=== PATIENT | male | born 1970 | race Caucasian/White ===

== ENCOUNTER 2022-12-01 19:48 | Emergency (ER) | payer OTHER, SELFPAY ==
[2022-12-01 20:13] VITALS: BP 107/66; PULSE 75; RESP 16; TEMP 36.8; O2SAT 98; BMI 30.4
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
[2022-12-01] MEDS: Acetaminophen 325 MG TABLET 975 MG PO (20:41)
[2022-12-01] MEDS: Cyclobenzaprine HCl 10 MG TABLET PO (20:41)
--- NOTE | 2022-12-01 20:42 | PC.NURSE ---
pt medicated per MAR
== END 2022-12-01 20:56 | disposition home or self-care (01) ==
PROVIDERS: Emergency Provider Emergency Medicine
DX: Z04.1 Encounter for examination and observation following transport accident (principal); M79.18 Myalgia, other site
CPT/HCPCS: 99283

== ENCOUNTER 2023-06-07 04:53 | Emergency (ER) | payer OTHER, SELFPAY ==
[2023-06-07 05:19] VITALS: BP 117/73; PULSE 67; RESP 16; TEMP 36.1; O2SAT 96; BMI 28.0
[2023-06-07 06:03] VITALS: BP 123/80; PULSE 69; RESP 15; TEMP 36.8; O2SAT 97
--- OUTSIDE RECORDS SUMMARY | 2023-06-07 06:08 | XMS_ITS | Continuity of Care Document ---
Author Name Unknown Organization [facility] Address Unknown Care Team Providers Care Brusher Warp Name Role Phone Cinthia Reynolds Primary Care Physician Encounter [facility] [place] Date(s): 03/23/21 - 06/03/21 [facility] Attending Physician: Cinthia Reynolds Admitting Physician: Cinthia Reynolds Allergies, Adverse Reactions, Alerts Substance Reaction Severity Status NKA Active Immunizations Given and Recorded Vaccine Date Status Refusal Reason SARS-CoV-2 (COVID-19) Ad26 vaccine 11/11/20 Record ed pneumococcal 23-valent vaccine 04/28/20 Given influenza virus vaccine, inactivated 04/28/20 Give n influenza virus vaccine, inactivated 04/29/19 Cody rded Tetanus-Diphth Toxoids, Adult (oldterm) 1 12/02/11 Given 1Admin Note: vis given 05/03/08 Medications Flovent HFA 110 mcg/inh inhalation aerosol = 220 mcg, Inhalation, 2 times a day, for asthma control rinse mouth and throat after use label in uruguayan, # 1 each, 11 Refills, Maintenance, 03/23/21 15:47:00 EDT, [facility], 170, cm, 03/23/21 15:16:00 EDT, Height, 82.72, kg,... Start Date: 03/23/21 Status: Ordered Mobic 15 mg oral tablet 1 tablet = 15 mg, By Mouth, Daily, FOR LEFT ARM PAIN LABEL IN BULGARIAN, # 30 tablet, 0 Refills, Maintenance, 03/23/21 15:53:00 EDT, Tablet, [facility], Partial fill upon patient request if the prescription is for a schedule II opio... Start Date: 03/23/21 Status: Ordered ProAir HFA 90 mcg/inh inhalation aerosol with adapter 2, puffs, Inhalation, Every 4 hours, PRN, # 8.5 Gm, Refills 11, Tot. Refills 11, Maintenance, 03/23/21 15:47:00 EDT, Aerosol, Route to Pharmacy Electronically, [id number], [facility], 170, cm, 03/23/21 15:... Start Date: 03/23/21 Status: Ordered Protonix 40 mg oral delayed release tablet 1 tablet = 40 mg, By Mouth, 2 times a day, for stomach pain label in uruguayan, # 30 tablet, 11 Refills, Maintenance, 03/23/21 15:47:00 EDT, EC Tablet, 170, cm, 03/23/21 15:16:00 EDT, Height, 82.72, kg, 07/12/19 16:27:00 EST, Dry Weight Start Date: 03/23/21 Status: Ordered tiZANidine 4 mg oral capsule 1 capsule = 4 mg, By Mouth, 3 times a day, FOR MUSCLE PAIN LEFT ARM LABEL IN BULGARIAN, # 42 capsule,0 Refills, Maintenance, 03/23/21 15:53:00 EDT, Capsule, [facility], Partial fill upon patient request if the prescription is for... Start Date: 03/23/21 Stop Date: 04/06/21 Status: Ordered Problem List Condition Effective Dates Status Health Status Inform ant AR (allergic rhinitis)(Confirmed) Active Asthma(Confirmed) Active Cough(Confirmed) Active Depression(Confirmed) Active GERD (gastroesophageal reflu x disease)(Confirmed) Active Social History Social History Type Response Smoking Status Former smoker, quit more than 30 days ago; Total pack years: 27; Started at age: 20; Stopped at age: 47; entered on: 08/10/18 Sex
--- OUTSIDE RECORDS SUMMARY | 2023-06-07 06:08 | XMS_ITS | Continuity of Care Document ---
Author Name Unknown Organization [facility] Address [address] [place] [id number]- Care Team Providers Care Engagement Director Name Role Phone Passer Cinthia MALIN Primary Care Physician En[place] [facility] [place]CT R [id number] Date(s): 11/13/22 - 12/13/22 [facility] [address] [place] [address]- Attending Physician: Perry Marcum Admitting Physician: AdmtrPerry Referring Physician: Admtr, Ar8 Allergies, Adverse Reactions, Alerts No Known Allergies Immunizations Given and Recorded Vaccine Date Status Refusal Reason influenza virus vaccine, inactivated 03/11/22 Cody rded influenza virus vaccine, inactivated 04/28/20 Give n influenza virus vaccine, inactivated 04/29/19 Cody rded tetanus/diphtheria/pertussis, acel(Tdap) 03/11/22 Recorded SARS-CoV-2 (COVID-19) mRNA BNT-162b2 vac 07/05/21 Recorded SARS-CoV-2 (COVID-19) Ad26 vaccine 11/11/20 Record ed pneumococcal 23-valent vaccine 04/28/20 Given Tetanus-Diphth Toxoids, Adult (oldterm) 1 12/02/11 Given 1Admin Note: vis given 05/03/08 Medications Boostrix (Tdap) intramuscular suspension 0.5 mL, Intramuscular, Once, # 5 mL, 0 Refills, Soft Stop, 03/11/22 14:15:00 EDT, Suspension, [facility]odd[facility][id number], Partial fill upon patient request if the prescription is for a schedule II opioid drug., 0.5 mL Intramuscular Once, 170,... Start Date: 03/11/22 Status: Ordered CeleBREX 200 mg oral capsule 1 capsule = 200 mg, By Mouth, 2 times a day, with food for right knee pain label in malian, # 60 capsule, 2 Refills, Maintenance, 09/19/22 11:26:00 EDT, Capsule, [facility], Partial fill upon patient request if the prescripti... Start Date: 09/19/22 Status: Ordered influenza virus vaccine, inactivated adjuvanted preservative-free quadrivalent intramuscular susp 0.5 mL, Intramuscular, Once, # 0.5 mL, 0 Refills, Soft Stop, 03/11/22 14:15:00 EDT, Suspension, [facility], Partial fill upon patient request if the prescription is for a schedule II opioid drug., 0.5 mL Intramuscular Once, 170... Start Date: 03/11/22 Status: Ordered ProAir HFA 90 mcg/inh inhalation aerosol with adapter 2, puffs, Inhalation, Every 4 hours, PRN, # 8.5 Gm, Refills 11, Tot. Refills 11, Maintenance, 03/11/22 14:14:00 EDT, Aerosol, Route to Pharmacy Electronically, NCPDP_[id number], [facility], 170, cm, 03/11/22 13:52:00 EDT, Height Start Date: 03/11/22 Status: Ordered Shingrix intramuscular injection = 0.5 mL, Intramuscular, Once, repeat dose in 2 to 6 months, # 2 each, 0 Refills, Soft Stop, 09/19/22 11:10:00 EDT, Powder, [facility], Partial fill upon patient request if the prescription is for a schedule II opioid drug., 0.... Start Date: 09/19/22 Status: Ordered Symbicort 80mcg/4.5mcg Inhaler 2, puffs, Inhalation, 2 times a day, for asthma control rinse mouth and throat after use Label in malian, # 1 each, Refills 11, Tot. Refills 11, Maintenance, 03/11/22 14:14:00 EDT, Aerosol, Route toPharmacy Electronically, NCPDP_ID- [id number], [place]... Start Date: 03/11/22 Status: Ordered Problem List Condition Confirmation Course Effective Dates Status Health St atus Informant AR (allergic rhinitis) Confirmed Active Asthma Confirmed Active Cough Confirmed Active Depression Confirmed Active GERD (gastroesophageal reflux disease) Confirmed Active Obese class I Confirmed Active Social History Social History Type Response Smoking Status Former smoker, quit more than 30 days ago; Total pack years: 27; Started at age: 20; Stopped at age: 47; entered on: 08/10/18 Sex Patient Care team information Care Team Personnel Name: Cinthia Reynolds Position: S PCO Associate Professional Member Role: PCP Address: Address: [address] [place] [address]- Care Team Related Persons Name: CRISTOPHER HUERTA Address: home [address] [place] [address]
--- OUTSIDE RECORDS SUMMARY | 2023-06-07 06:09 | XMS_ITS | Continuity of Care Document ---
Author Name Unknown Organization [facility] Address [address] [place] [address]- Care Team Providers Care Research Program Coordinator Name Role Phone Cinthia Reynolds Primary Care Physician Encounter [facility] [place] ACCT R [id number] Date(s): 04/09/22 - 07/06/22 [facility] [address] [place] [address]- Attending Physician: Ebenezer Vicente MD Admitting Physician: Ebenezer Vicente MD Referring Physician: Cinthia Reynolds Allergies, Adverse Reactions, Alerts No Known Allergies [...] Refills, Soft Stop, 03/11/22 14:15:00 EDT, Suspension, [id number], Partial fill upon patient request if the prescription is for a schedule II opioid drug., 0.5 mL Intramuscular Once, 170,... Start Date: 03/11/22 Status: Ordered influenza virus vaccine, inactivated adjuvanted preservative-free quadrivalent intramuscular susp 0.5 mL, Intramuscular, Once, # 0.5 mL, 0 Refills, Soft Stop, 03/11/22 14:15:00 EDT, Suspension, [facility], Partial fill upon patient request if the prescription is for a schedule II opioid drug., 0.5 mL Intramuscular Once, 170... Start Date: 03/11/22 Status: Ordered ProAir HFA 90 mcg/inh inhalation aerosol with adapter 2, puffs, Inhalation, Every 4 hours, PRN, # 8.5 Gm, Refills 11, Tot. Refills 11, Maintenance, 03/11/22 14:14:00 EDT, Aerosol, Route to Pharmacy Electronically, NCPDP_[id number], [facility], 170, cm, 03/11/22 13:52:00 EDT, Height Start Date: 03/11/22 Status: Ordered Protonix 40 mg oral delayed release tablet 1 tablet = 40 mg, By Mouth, 2 times a day, for stomach pain label in djiboutian, # 180 tablet, 1 Refills, Maintenance, 06/03/22 9:47:00 EST, EC Tablet, 170, cm, 06/03/22 9:37:00 EST, Height Start Date: 06/03/22 Status: Ordered Symbicort 80mcg/4.5mcg Inhaler 2, puffs, Inhalation, 2 times a day, for asthma control rinse mouth and throat after use Label in djiboutian, # 1 each, Refills 11, Tot. Refills 11, Maintenance, 03/11/22 14:14:00 EDT, Aerosol, Route toPharmacy Electronically, NCPDP_ID- [id number], [facility]... Start Date: 03/11/22 Status: Ordered Problem List Condition Confirmation Course Effective Dates Status Health St atus Informant AR (allergic rhinitis) Confirmed Active Asthma Confirmed Active Cough Confirmed Active Depression Confirmed Active GERD (gastroesophageal reflux disease) Confirmed Active Social History Social History Type Response Smoking Status Former smoker, quit more than 30 days ago; Total pack years: 27; Started at age: 20; Stopped at age: 47; entered on: 08/10/18 Sex Patient Care team information Care Team Personnel Name: Cinthia Reynolds Position: S PCO Associate Professional Member Role: PCP Address: Address: [address] [place] [address]- Care Team Related Persons Name: CRISTOPHER HUERTA Address: home [address] [place] [address]
--- OUTSIDE RECORDS SUMMARY | 2023-06-07 06:09 | XMS_ITS | Continuity of Care Document ---
Author Name Unknown Organization [facility] Address [address] [place] [address]- Care Team Providers Care Potato Inspector Name Role Phone Cinthia Reynolds Primary Care Physician Encounter [facility] [place] Date(s): 03/11/22 - 03/18/22 [facility] [address]- Attending Physician: Cinthia Reynolds Allergies, Adverse Reactions, Alerts No Known Allergies Immunizations Given and Recorded Vaccine Date Status Refusal Reason SARS-CoV-2 (COVID-19) mRNA BNT-162b2 vac 07/05/21 Recorded [...] Refills, Soft Stop, 03/11/22 14:15:00 EDT, Suspension, [facility]ydds[facility]rv[facility]-[id number], Partial fill upon patient request if the prescription is for a schedule II opioid drug., 0.5 mL Intramuscular Once, 170,... Start Date: 03/11/22 Status: Ordered influenza virus vaccine, inactivated adjuvanted preservative-free quadrivalent intramuscular susp 0.5 mL, Intramuscular, Once, # 0.5 mL, 0 Refills, Soft Stop, 03/11/22 14:15:00 EDT, Suspension, [facility]-[id number], Partial fill upon patient request if the prescription is for a schedule II opioid drug., 0.5 mL Intramuscular Once, 170... Start Date: 03/11/22 Status: Ordered ProAir HFA 90 mcg/inh inhalation aerosol with adapter 2, puffs, Inhalation, Every 4 hours, PRN, # 8.5 Gm, Refills 11, Tot. Refills 11, Maintenance, 03/11/22 14:14:00 EDT, Aerosol, Route to Pharmacy Electronically, NCPDP_[id number], [place] [id number], 170, cm, 03/11/22 13:52:00 EDT, Height Start Date: 03/11/22 Status: Ordered Protonix 40 mg oral delayed release tablet 1 tablet = 40 mg, By Mouth, 2 times a day, for stomach pain label in vatican citizen, # 30 tablet, 11 Refills, Maintenance, 03/11/22 14:14:00 EDT, EC Tablet, 170, cm, 03/11/22 13:52:00 EDT, Height Start Date: 03/11/22 Status: Ordered Symbicort 80mcg/4.5mcg Inhaler 2, puffs, Inhalation, 2 times a day, for asthma control rinse mouth and throat after use Label in vatican citizen, # 1 each, Refills 11, Tot. Refills 11, Maintenance, 03/11/22 14:14:00 EDT, Aerosol, Route toPharmacy Electronically, NCPDP_ID- [id number], [place]... Start Date: 03/11/22 Status: Ordered Problem List Condition Confirmation Course Effective Dates Status Health St atus Informant AR (allergic rhinitis) Confirmed Active Asthma Confirmed Active Cough Confirmed Active Depression Confirmed Active GERD (gastroesophageal reflux disease) Confirmed Active Vital Signs Most recent to oldest [Reference Range]: 1 Height 170 cm (03/11/22 1:52 PM) Weight 82.27 kg (03/11/22 1:52 PM) Oxygen Saturation [94-100 %] 97 % (03/11/22 1:52 PM) Pulse Rate [55-90 bpm] 75 bpm (03/11/22 1:52 PM) Body Mass Index [18.5-24.99 kg/m2] 28.47 kg/m2 *H* (03/11/22 1:52 PM) Blood Pressure [90-138/55-84 mm Hg] 121/ 75mm Hg (03/11/22 1:52 PM) Respiratory Rate [16-30 br/min] 16 br/mi n (03/11/22 1:52 PM) Temperature [96.8-100.4 DegF] 99.0 DegF (03/11/22 1:52 PM) Mode of Delivery (Oxygen) Room air (03/11/22 1:52 PM) Blood pressure sites Arm, left (03/11/22 1:52 PM) Temperature Route Oral (03/11/22 1:52 PM) Weight Obtained Via Standing scale (03/11/22 1:52 PM) Social History Social History Type Response Smoking Status Former smoker, quit more than 30 days ago; Total pack years: 27; Started at age: 20; Stopped at age: 47; entered on: 08/10/18 Sex Patient Care team information Personnel Name: Cinthia Reynolds Address: Address: [address] [place] [address]
--- OUTSIDE RECORDS SUMMARY | 2023-06-07 06:09 | XMS_ITS | Continuity of Care Document ---
Author Name Unknown Organization [facility] Address [address] [place], [place] [id number]- Care Team Providers Care Senior Quality Control Technician Name Role Phone Cinthia Reynolds Primary Care Physician Encounter [facility] [place] Date(s): 12/18/22 - 01/25/23 [facility]/[place] [address]- Attending Physician: Cinthia Reynolds Allergies, Adverse Reactions, [...] Refills, Soft Stop, 03/11/22 14:15:00 EDT, Suspension, [facility]Kbjqgmwodxo-[id number], Partial fill upon patient request if the prescription is for a schedule II opioid drug., 0.5 mL Intramuscular Once, 170,... Start Date: 03/11/22 Status: Ordered CeleBREX 200 mg oral capsule 1 capsule = 200 mg, By Mouth, 2 times a day, with food for right knee pain label in welsh, # 60 capsule, 2 Refills, Maintenance, 09/19/22 11:26:00 EDT, Capsule, [facility], Partial fill upon patient request if the prescripti... Start Date: 09/19/22 Status: Ordered influenza virus vaccine, inactivated adjuvanted preservative-free quadrivalent intramuscular susp 0.5 mL, Intramuscular, Once, # 0.5 mL, 0 Refills, Soft Stop, 03/11/22 14:15:00 EDT, Suspension, [facility], Partial fill upon patient request if the prescription is for a schedule II opioid drug., 0.5 mL Intramuscular Once, 170... Start Date: 03/11/22 Status: Ordered ProAir HFA 90 mcg/inh inhalation aerosol with adapter 2, puffs, Inhalation, Every 4 hours, PRN, # 8.5 Gm, Refills 11, Tot. Refills 11, Maintenance, 03/11/22 14:14:00 EDT, Aerosol, Route to Pharmacy Electronically, NCPDP_[id number], [id number], 170, cm, 03/11/22 13:52:00 EDT, Height Start Date: 03/11/22 Status: Ordered Shingrix intramuscular injection = 0.5 mL, Intramuscular, Once, repeat dose in 2 to 6 months, # 2 each, 0 Refills, Soft Stop, 09/19/22 11:10:00 EDT, Powder, [facility], Partial fill upon patient request if the prescription is for a schedule II opioid drug., 0.... Start Date: 09/19/22 Status: Ordered Symbicort 80mcg/4.5mcg Inhaler 2, puffs, Inhalation, 2 times a day, for asthma control rinse mouth and throat after use Label in welsh, # 1 each, Refills 11, Tot. Refills 11, Maintenance, 03/11/22 14:14:00 EDT, Aerosol, Route toPharmacy Electronically, NCPDP_ID- [id number], [place]... Start Date: 03/11/22 Status: Ordered Problem List [...] Associate Professional Member Role: PCP Address: Address: [address] [place] [address]- Care Team Related Persons Name: CRISTOPHER HUERTA Address: home [address] [place] [address]
--- OUTSIDE RECORDS SUMMARY | 2023-06-07 06:09 | XMS_ITS | Continuity of Care Document ---
Author Name Unknown Organization [facility] Address [address] [place] [address]- Care Team Providers Care Clip Wrapper Name Role Phone Passer Cinthia MALIN Primary Care Physician Encounter [facility] [place] Date(s): 06/23/19 - 07/03/19 [facility]/[address] [address]- [facility] Attending Physician: Perry Marcum Admitting Physician: Perry Marcum Referring Physician: AdmtrPerry Allergies, Adverse Reactions, Alerts Substance Reaction Severity Status NKA Active Immunizations Given and Recorded Vaccine Date Status Refusal Reason Tetanus-Diphth Toxoids, Adult (oldterm) 1 12/02/11 Given 1Admin Note: vis given 05/03/08 Medications Flovent HFA 110 mcg/inh inhalation aerosol = 220 mcg, Inhalation, 2 times a day, for asthma control rinse mouth and throat after use label in uzbek, # 1 each, 6 Refills, Maintenance, 11/30/18 11:30:27 EDT Start Date: 11/30/18 Status: Ordered ProAir HFA 90 mcg/inh inhalation aerosol with adapter 2, puffs, Inhalation, Every 4 hours, PRN, # 8.5 Gm, Refills 6, Tot. Refills 6, Maintenance, 03/02/19 10:46:43 EDT, Aerosol, Route to Pharmacy Electronically, [id number], [facility] #[id number] Start Date: 03/02/19 Status: Ordered Protonix 40 mg oral delayed release tablet 1 tablet = 40 mg, By Mouth, 2 times a day, for stomach pain label in uzbek, # 30 tablet, 3 Refills, Maintenance, 03/02/19 10:43:56 EDT, EC Tablet Start Date: 03/02/19 Status: Ordered Singulair 10 mg oral tablet 10 mg, 1, tablet, By Mouth, Daily, for allergies and asthma label in uzbek, # 90 tablet, Refills 3, Tot. Refills 3, Maintenance, 03/02/19 10:46:42 EDT, Route to Pharmacy Electronically, [id number], [id number] Start Date: 03/02/19 Status: Ordered ZyrTEC 10 mg oral tablet 1 tablet = 10 mg, By Mouth, Daily, for allergies label in uzbek, # 90 tablet, 3 Refills, Maintenance, 03/02/19 10:47:09 EDT, Tablet Start Date: 03/02/19 Status: Ordered Problem List Condition Effective Dates Status Health Status Inform ant Asthma(Confirmed) Active Cough(Confirmed) Active Depression(Confirmed) Active Social History Social History Type Response Smoking Status Former smoker, quit more than 30 days ago; Total pack years: 27; Started at age: 20; Stopped at age: 47; entered on: 08/10/18 Sex
--- OUTSIDE RECORDS SUMMARY | 2023-06-07 06:09 | XMS_ITS | Continuity of Care Document ---
Author Name Unknown Organization [facility] Address [address] [place] [address]- Care Team Providers Care Store Person Name Role Phone Passer Cinthia MALIN Primary Care Physician Encounter [facility] [place] Date(s): 12/26/22 - 01/25/23 [facility]/[place] [address]- Attending Physician: AdmPerry haddad Admitting Physician: AdmtrPerry Referring Physician: Admtr, Ar8 Allergies, Adverse Reactions, Alerts No Known Allergies Immunizations Given and Recorded Vaccine Date Status Refusal Reason influenza virus vaccine, inactivated 03/11/22 Ocdy rded influenza virus vaccine, inactivated 04/28/20 Give [...] Refills, Soft Stop, 03/11/22 14:15:00 EDT, Suspension, [id number]-Ztvdhcrrbgg-[id number], Partial fill upon patient request if the prescription is for a schedule II opioid drug., 0.5 mL Intramuscular Once, 170,... Start Date: 03/11/22 Status: Ordered CeleBREX 200 mg oral capsule 1 capsule = 200 mg, By Mouth, 2 times a day, with food for right knee pain label in french, # 60 capsule, 2 Refills, Maintenance, 09/19/22 11:26:00 EDT, Capsule, [facility]-20199, Partial fill upon patient request if the prescripti... Start Date: 09/19/22 Status: Ordered influenza virus vaccine, inactivated adjuvanted preservative-free quadrivalent intramuscular susp 0.5 mL, Intramuscular, Once, # 0.5 mL, 0 Refills, Soft Stop, 03/11/22 14:15:00 EDT, Suspension, [facility]-[id number], Partial fill upon patient request if the prescription is for a schedule II opioid drug., 0.5 mL Intramuscular Once, 170... Start Date: 03/11/22 Status: Ordered ProAir HFA 90 mcg/inh inhalation aerosol with adapter 2, puffs, Inhalation, Every 4 hours, PRN, # 8.5 Gm, Refills 11, Tot. Refills 11, Maintenance, 03/11/22 14:14:00 EDT, Aerosol, Route to Pharmacy Electronically, NCPDP_[id number], [facility]-[id number], 170, cm, 03/11/22 13:52:00 EDT, Height Start Date: 03/11/22 Status: Ordered Shingrix intramuscular injection = 0.5 mL, Intramuscular, Once, repeat dose in 2 to 6 months, # 2 each, 0 Refills, Soft Stop, 09/19/22 11:10:00 EDT, Powder, [facility]-20199, Partial fill upon patient request if the prescription is for a schedule II opioid drug., 0.... Start Date: 09/19/22 Status: Ordered Symbicort 80mcg/4.5mcg Inhaler 2, puffs, Inhalation, 2 times a day, for asthma control rinse mouth and throat after use Label in french, # 1 each, Refills 11, Tot. Refills 11, Maintenance, 03/11/22 14:14:00 EDT, Aerosol, Route toPharmacy Electronically, NCPDP_ID- [id number], [place]... Start Date: 03/11/22 Status: Ordered Problem List [...] Care Team Personnel Name: Cinthia Reynolds Position: [facility] Associate Professional Member Role: PCP Address: Address: [address] [place] [address]- Care Team Related Persons Name: CRISTOPHER HUERTA Address: home [address] [place] [address]
--- OUTSIDE RECORDS SUMMARY | 2023-06-07 06:09 | XMS_ITS | Continuity of Care Document ---
Author Name Unknown Organization [facility] Address [address] [place] [address]- Care Team Providers Care Van Owner Operator Name Role Phone Cinthia Reynolds Primary Care Physician [place] [facility] [place]/25[place]20 - 11/18/20 [facility]/[address] [address]- Attending Physician: Cinthia Reynolds Admitting Physician: Cinthia Reynolds Allergies, Adverse Reactions, Alerts Substance Reaction Severity Status NKA Active Immunizations Given and Recorded Vaccine Date Status Refusal Reason pneumococcal 23-valent vaccine 04/28/20 Given influenza virus vaccine, inactivated 04/28/20 Give n Tetanus-Diphth Toxoids, Adult (oldterm) 1 12/02/11 Given 1Admin Note: vis given 05/03/08 Medications Flovent HFA 110 mcg/inh inhalation aerosol = 220 mcg, Inhalation, 2 times a day, for asthma control rinse mouth and throat after use label in micronesian, # 1 each, 11 Refills, Maintenance, 04/28/20 14:55:00 EST, [facility] #[id number], 167.64, cm, 04/28/20 14:27:00 EST, Height, 82.72, kg,... Start Date: 04/28/20 Status: Ordered ProAir HFA 90 mcg/inh inhalation aerosol with adapter 2, puffs, Inhalation, Every 4 hours, PRN, # 8.5 Gm, Refills 11, Tot. Refills 11, Maintenance, 04/28/20 14:55:00 EST, Aerosol, Route to Pharmacy Electronically, [id number], [facility] #[id number], 167.64, cm, 04/28/20 14:... Start Date: 04/28/20 Status: Ordered Protonix 40 mg oral delayed release tablet 1 tablet = 40 mg, By Mouth, 2 times a day, for stomach pain label in micronesian, # 30 tablet, 11 Refills, Maintenance, 05/26/20 13:38:00 EST, EC Tablet, 167.64, cm, 05/26/20 11:25:00 EST, Height, 82.72,kg, 07/12/19 16:27:00 EST, Dry Weight Start Date: 05/26/20 Status: Ordered Singulair 10 mg oral tablet 10 mg, 1, tablet, By Mouth, Daily, for allergies and asthma label in micronesian, # 30 tablet, Refills 11, Tot. Refills 11, Maintenance, 04/28/20 14:55:00 EST, Route to Pharmacy Electronically, [facility] #[id number], 167.64, cm, 04/28/20 14:27:00 E... Start Date: 04/28/20 Status: Ordered ZyrTEC 10 mg oral tablet 1 tablet = 10 mg, By Mouth, Daily, for allergies label in micronesian, # 30 tablet, 11 Refills, Maintenance, 04/28/20 14:55:00 EST, Tablet, [facility] #[id number], 167.64, cm, 04/28/20 14:27:00 EST,Height, 82.72, kg, 07/12/19 16:27:00 EST, Dry Weight Start Date: 04/28/20 Status: Ordered Problem List Condition Effective Dates [...]
--- OUTSIDE RECORDS SUMMARY | 2023-06-07 06:09 | XMS_ITS | Continuity of Care Document ---
Author Name Unknown Organization [facility] Address [address] [place] [address]- Care Team Providers Care Nutrition Counselor Name Role Phone Passer Cinthia MALIN Primary Care Physician Encounter [facility] Date(s): 11/03/20 - 12/03/20 [facility]/[address] [address]- Allergies, Adverse Reactions, Alerts Substance Reaction Severity [...] mouth and throat after use label in chilean, # 1 each, 11 Refills, Maintenance, 04/28/20 14:55:00 EST, [facility] #[id number], 167.64, cm, 04/28/20 14:27:00 EST, Height, 82.72, kg,... Start Date: 04/28/20 Status: Ordered ProAir HFA 90 mcg/inh inhalation aerosol with adapter 2, puffs, Inhalation, Every 4 hours, PRN, # 8.5 Gm, Refills 11, Tot. Refills 11, Maintenance, 04/28/20 14:55:00 EST, Aerosol, Route to Pharmacy Electronically, [id number], [facility] #[id number], 167.64, cm, 04/28/20 14:... Start Date: 04/28/20 Status: Ordered Protonix 40 mg oral delayed release tablet 1 tablet = 40 mg, By Mouth, 2 times a day, for stomach pain label in chilean, # 30 tablet, 11 Refills, Maintenance, 05/26/20 13:38:00 EST, EC Tablet, 167.64, cm, 05/26/20 11:25:00 EST, Height, 82.72,kg, 07/12/19 16:27:00 EST, Dry Weight Start Date: 05/26/20 Status: Ordered Singulair 10 mg oral tablet 10 mg, 1, tablet, By Mouth, Daily, for allergies and asthma label in chilean, # 30 tablet, Refills 11, Tot. Refills 11, Maintenance, 04/28/20 14:55:00 EST, Route to Pharmacy Electronically, [facility] #[id number], 167.64, cm, 04/28/20 14:27:00 E... Start Date: 04/28/20 Status: Ordered ZyrTEC 10 mg oral tablet 1 tablet = 10 mg, By Mouth, Daily, for allergies label in chilean, # 30 tablet, 11 Refills, Maintenance, 04/28/20 14:55:00 EST, Tablet, [facility] #[id number], 167.64, cm, 04/28/20 14:27:00 EST,Height, 82.72, kg, [...]
--- OUTSIDE RECORDS SUMMARY | 2023-06-07 06:09 | XMS_ITS | Continuity of Care Document ---
Author Name Unknown Organization [facility] Address [address] [place] [address]- Care Team Providers Care Coppersmith Apprentice Name Role Phone Cinthia Reynolds Primary Care Physician [place] [facility] [place]s): 04/17/20 - 06/25/20 [facility] [address] [place] [address]- Attending Physician: Not on Staff, Attending MD Referring Physician: Cinthia Reynolds Allergies, Adverse [...] mouth and throat after use label in guinean, # 1 each, 11 Refills, Maintenance, 04/28/20 14:55:00 EST, [facility] #[id number], 167.64, cm, 04/28/20 14:27:00 EST, Height, 82.72, kg,... Start Date: 04/28/20 Status: Ordered ProAir HFA 90 mcg/inh inhalation aerosol with adapter 2, puffs, Inhalation, Every 4 hours, PRN, # 8.5 Gm, Refills 11, Tot. Refills 11, Maintenance, 04/28/20 14:55:00 EST, Aerosol, Route to Pharmacy Electronically, [id number], [facility] #[id number], 167.64, cm, 04/28/20 14:... Start Date: 04/28/20 Status: Ordered Protonix 40 mg oral delayed release tablet 1 tablet = 40 mg, By Mouth, 2 times a day, for stomach pain label in guinean, # 30 tablet, 11 Refills, Maintenance, 05/26/20 13:38:00 EST, EC Tablet, 167.64, cm, 05/26/20 11:25:00 EST, Height, 82.72,kg, 07/12/19 16:27:00 EST, Dry Weight Start Date: 05/26/20 Status: Ordered Singulair 10 mg oral tablet 10 mg, 1, tablet, By Mouth, Daily, for allergies and asthma label in guinean, # 30 tablet, Refills 11, Tot. Refills 11, Maintenance, 04/28/20 14:55:00 EST, Route to Pharmacy Electronically, [facility] #[id number], 167.64, cm, 04/28/20 14:27:00 E... Start Date: 04/28/20 Status: Ordered ZyrTEC 10 mg oral tablet 1 tablet = 10 mg, By Mouth, Daily, for allergies label in guinean, # 30 tablet, 11 Refills, Maintenance, 04/28/20 14:55:00 EST, Tablet, [facility] #[id number], 167.64, cm, 04/28/20 14:27:00 EST,Height, 82.72, kg, [...]
--- OUTSIDE RECORDS SUMMARY | 2023-06-07 06:09 | XMS_ITS | Continuity of Care Document ---
Author Name Unknown Organization [facility] Address [address] [place] [address]- Care Team Providers Care Party Planner Name Role Phone Passer Cinthia MALIN Primary Care Physician [place] [facility] [place](s): 06/03/22 - 07/03/22 [facility]/[place] [address]- Attending Physician: AdmPerry haddad Admitting Physician: AdmtrPerry [...] Refills, Soft Stop, 03/11/22 14:15:00 EDT, Suspension, HwaeiKbqjxszezb-Hojrbwugbyc-[id number], Partial fill upon patient request if the prescription is for a schedule II opioid drug., 0.5 mL Intramuscular Once, 170,... Start Date: 03/11/22 Status: Ordered influenza virus vaccine, inactivated adjuvanted preservative-free quadrivalent intramuscular susp 0.5 mL, Intramuscular, Once, # 0.5 mL, 0 Refills, Soft Stop, 03/11/22 14:15:00 EDT, Suspension, [facility]-20199, Partial fill upon patient request if the prescription is for a schedule II opioid drug., 0.5 mL Intramuscular Once, 170... Start Date: 03/11/22 Status: Ordered ProAir HFA 90 mcg/inh inhalation aerosol with adapter 2, puffs, Inhalation, Every 4 hours, PRN, # 8.5 Gm, Refills 11, Tot. Refills 11, Maintenance, 03/11/22 14:14:00 EDT, Aerosol, Route to Pharmacy Electronically, NCPDP_[id number], [facility]-20199, 170, cm, 03/11/22 13:52:00 EDT, Height Start Date: 03/11/22 Status: Ordered Protonix 40 mg oral delayed release tablet 1 tablet = 40 mg, By Mouth, 2 times a day, for stomach pain label in macedonian, # 180 tablet, 1 Refills, Maintenance, 06/03/22 9:47:00 EST, EC Tablet, 170, cm, 06/03/22 9:37:00 EST, Height Start Date: 06/03/22 Status: Ordered Symbicort 80mcg/4.5mcg Inhaler 2, puffs, Inhalation, 2 times a day, for asthma control rinse mouth and throat after use Label in macedonian, # 1 each, Refills 11, Tot. Refills 11, Maintenance, 03/11/22 14:14:00 EDT, Aerosol, Route toPharmacy Electronically, NCPDP_ID- [id number], [facility]... Start Date: 03/11/22 Status: Ordered Problem List [...] Professional Member Role: PCP Address: Address: [address] [place] [address]- Care Team Related Persons Name: CRISTOPHER HUERTA Address: home [address] [place] [address]
--- OUTSIDE RECORDS SUMMARY | 2023-06-07 06:09 | XMS_ITS | Continuity of Care Document ---
Author Name Unknown Organization [facility] Address [address] [place] [address]- Care Team Providers Care Mason Liner Name Role Phone Passer Cinthia MALIN Primary Care Physician [place] [facility] [place]20 [facility] [address] [place] [address]- Attending Physician: Admtr, Sanford8 Admitting Physician: Admtr, Ar8 Referring Physician: Admtr, Ar8 Allergies, Adverse Reactions, Alerts Substance Reaction Severity [...] mouth and throat after use label in austrian, # 1 each, 11 Refills, Maintenance, 04/28/20 14:55:00 EST, [facility] #[id number], 167.64, cm, 04/28/20 14:27:00 EST, Height, 82.72, kg,... Start Date: 04/28/20 Status: Ordered ProAir HFA 90 mcg/inh inhalation aerosol with adapter 2, puffs, Inhalation, Every 4 hours, PRN, # 8.5 Gm, Refills 11, Tot. Refills 11, Maintenance, 04/28/20 14:55:00 EST, Aerosol, Route to Pharmacy Electronically, [id number], [facility] #[id number], 167.64, cm, 04/28/20 14:... Start Date: 04/28/20 Status: Ordered Protonix 40 mg oral delayed release tablet 1 tablet = 40 mg, By Mouth, 2 times a day, for stomach pain label in austrian, # 30 tablet, 11 Refills, Maintenance, 05/26/20 13:38:00 EST, EC Tablet, 167.64, cm, 05/26/20 11:25:00 EST, Height, 82.72,kg, 07/12/19 16:27:00 EST, Dry Weight Start Date: 05/26/20 Status: Ordered Singulair 10 mg oral tablet 10 mg, 1, tablet, By Mouth, Daily, for allergies and asthma label in austrian, # 30 tablet, Refills 11, Tot. Refills 11, Maintenance, 04/28/20 14:55:00 EST, Route to Pharmacy Electronically, [facility] #[id number], 167.64, cm, 04/28/20 14:27:00 E... Start Date: 04/28/20 Status: Ordered ZyrTEC 10 mg oral tablet 1 tablet = 10 mg, By Mouth, Daily, for allergies label in austrian, # 30 tablet, 11 Refills, Maintenance, 04/28/20 14:55:00 EST, Tablet, [facility] #[id number], 167.64, cm, 04/28/20 14:27:00 EST,Height, 82.72, kg, [...]
--- OUTSIDE RECORDS SUMMARY | 2023-06-07 06:09 | XMS_ITS | Continuity of Care Document ---
Author Name Unknown Organization [facility] Address [address] [place] [address]- Care Team Providers Care Procurement Accountant Name Role Phone Cinthia Reynolds Primary Care Physician [place] [facility] [place]s): 02/08/22 - 03/27/22 [facility]/[place] [address]- Attending Physician: Cinthia Reynolds Allergies, Adverse Reactions, [...] Refills, Soft Stop, 03/11/22 14:15:00 EDT, Suspension, [id number]-[id number], Partial fill upon patient request if the prescription is for a schedule II opioid drug., 0.5 mL Intramuscular Once, 170,... Start Date: 03/11/22 Status: Ordered influenza virus vaccine, inactivated adjuvanted preservative-free quadrivalent intramuscular susp 0.5 mL, Intramuscular, Once, # 0.5 mL, 0 Refills, Soft Stop, 03/11/22 14:15:00 EDT, Suspension, [facility] [id number]-[id number], Partial fill upon patient request if the prescription is for a schedule II opioid drug., 0.5 mL Intramuscular Once, 170... Start Date: 03/11/22 Status: Ordered ProAir HFA 90 mcg/inh inhalation aerosol with adapter 2, puffs, Inhalation, Every 4 hours, PRN, # 8.5 Gm, Refills 11, Tot. Refills 11, Maintenance, 03/11/22 14:14:00 EDT, Aerosol, Route to Pharmacy Electronically, NCPDP_[id number], [facility]-20199, 170, cm, 03/11/22 13:52:00 EDT, Height Start Date: 03/11/22 Status: Ordered Protonix 40 mg oral delayed release tablet 1 tablet = 40 mg, By Mouth, 2 times a day, for stomach pain label in luxembourger, # 30 tablet, 11 Refills, Maintenance, 03/11/22 14:14:00 EDT, EC Tablet, 170, cm, 03/11/22 13:52:00 EDT, Height Start Date: 03/11/22 Status: Ordered Symbicort 80mcg/4.5mcg Inhaler 2, puffs, Inhalation, 2 times a day, for asthma control rinse mouth and throat after use Label in luxembourger, # 1 each, Refills 11, Tot. Refills 11, Maintenance, 03/11/22 14:14:00 EDT, Aerosol, Route toPharmacy Electronically, NCPDP_ID- [id number], [place]... Start Date: 03/11/22 Status: Ordered Problem List [...] information Personnel Name: Cinthia Reynolds Address: Address: [address] [place] [address]
--- OUTSIDE RECORDS SUMMARY | 2023-06-07 06:09 | XMS_ITS | Continuity of Care Document ---
Author Name Unknown Organization [facility] Address [address] [place] [address]- Care Team Providers Care Cutting Table Operator Name Role Phone Passer Cinthia MALIN Primary Care Physician Encounter [facility] [place] Date(s): 10/03/22 - 11/02/22 [facility]/[place] [address]- Attending Physician: AdmPerry haddad Admitting Physician: AdmtrPerry [...] Refills, Soft Stop, 03/11/22 14:15:00 EDT, Suspension, QnvblKtzenrvani-Rvwonepjhsd-[id number], Partial fill upon patient request if the prescription is for a schedule II opioid drug., 0.5 mL Intramuscular Once, 170,... Start Date: 03/11/22 Status: Ordered CeleBREX 200 mg oral capsule 1 capsule = 200 mg, By Mouth, 2 times a day, with food for right knee pain label in guamanian, # 60 capsule, 2 Refills, Maintenance, 09/19/22 11:26:00 EDT, Capsule, [facility]-20199, Partial fill upon patient request if the prescripti... Start Date: 09/19/22 Status: Ordered influenza virus vaccine, inactivated adjuvanted preservative-free quadrivalent intramuscular susp 0.5 mL, Intramuscular, Once, # 0.5 mL, 0 Refills, Soft Stop, 03/11/22 14:15:00 EDT, Suspension, [facility]-20199, Partial fill upon patient request if the prescription is for a schedule II opioid drug., 0.5 mL Intramuscular Once, 170... Start Date: 03/11/22 Status: Ordered ProAir HFA 90 mcg/inh inhalation aerosol with adapter 2, puffs, Inhalation, Every 4 hours, PRN, # 8.5 Gm, Refills 11, Tot. Refills 11, Maintenance, 03/11/22 14:14:00 EDT, Aerosol, Route to Pharmacy Electronically, NCPDP_[id number], [facility]-20199, 170, cm, 03/11/22 13:52:00 EDT, Height Start Date: 03/11/22 Status: Ordered Shingrix intramuscular injection = 0.5 mL, Intramuscular, Once, repeat dose in 2 to 6 months, # 2 each, 0 Refills, Soft Stop, 09/19/22 11:10:00 EDT, Powder, [facility]-20199, Partial fill upon patient request if the prescription is for a schedule II opioid drug., 0.... Start Date: 09/19/22 Status: Ordered Symbicort 80mcg/4.5mcg Inhaler 2, puffs, Inhalation, 2 times a day, for asthma control rinse mouth and throat after use Label in guamanian, # 1 each, Refills 11, Tot. Refills 11, Maintenance, 03/11/22 14:14:00 EDT, Aerosol, Route toPharmacy Electronically, NCPDP_ID- [id number], [facility]... Start Date: 03/11/22 Status: Ordered Problem List [...] Care Team Personnel Name: Cinthia Reynolds Position: [facility] Associate Professional Member Role: PCP Address: Address: [address] [place] [address]- Care Team Related Persons Name: CRISTOPHER HUERTA Address: home [address] [place] [address]
--- OUTSIDE RECORDS SUMMARY | 2023-06-07 06:09 | XMS_ITS | Continuity of Care Document ---
Author Name Unknown Organization [facility] Address [address] [place] [address]- Care Team Providers Care Ict Business Development Manager Name Role Phone Cinthia Reynolds Primary Care Physician Encounter [facility] Date(s): 06/03/22 - 06/10/22 [facility] [address]- Attending Physician: Cinthia Reynolds Allergies, Adverse Reactions, [...] Refills, Soft Stop, 03/11/22 14:15:00 EDT, Suspension, [id number]-[id number], Partial fill upon patient request if the prescription is for a schedule II opioid drug., 0.5 mL Intramuscular Once, 170,... Start Date: 03/11/22 Status: Ordered influenza virus vaccine, inactivated adjuvanted preservative-free quadrivalent intramuscular susp 0.5 mL, Intramuscular, Once, # 0.5 mL, 0 Refills, Soft Stop, 03/11/22 14:15:00 EDT, Suspension, [facility]-20199, Partial fill upon patient request if the prescription is for a schedule II opioid drug., 0.5 mL Intramuscular Once, 170... Start Date: 03/11/22 Status: Ordered ProAir HFA 90 mcg/inh inhalation aerosol with adapter 2, puffs, Inhalation, Every 4 hours, PRN, # 8.5 Gm, Refills 11, Tot. Refills 11, Maintenance, 03/11/22 14:14:00 EDT, Aerosol, Route to Pharmacy Electronically, NCPDP_ID-[id number], [facility]-20199, 170, cm, 03/11/22 13:52:00 EDT, Height Start Date: 03/11/22 Status: Ordered Protonix 40 mg oral delayed release tablet 1 tablet = 40 mg, By Mouth, 2 times a day, for stomach pain label in central african, # 180 tablet, 1 Refills, Maintenance, 06/03/22 9:47:00 EST, EC Tablet, 170, cm, 06/03/22 9:37:00 EST, Height Start Date: 06/03/22 Status: Ordered Symbicort 80mcg/4.5mcg Inhaler 2, puffs, Inhalation, 2 times a day, for asthma control rinse mouth and throat after use Label in central african, # 1 each, Refills 11, Tot. Refills 11, Maintenance, 03/11/22 14:14:00 EDT, Aerosol, Route toPharmacy Electronically, NCPDP_ID- [id number], [place]... Start Date: 03/11/22 Status: Ordered Problem List Condition Confirmation Course Effective Dates Status Health St [facility] Informant [place] (allergic rhinitis) Confirmed Active Asthma Confirmed Active Cough Confirmed Active Depression Confirmed Active GERD (gastroesophageal reflux disease) Confirmed Active Vital Signs Most recent to oldest [Reference Range]: 1 Height 170 cm (06/03/22 9:37 AM) Weight 83.63 kg (06/03/22 9:37 AM) Oxygen Saturation [94-100 %] 97 % (06/03/22 9:37 AM) Pulse Rate [55-90 bpm] 64 bpm (06/03/22 9:37 AM) Body Mass Index [18.5-24.99 kg/m2] 28.94 kg/m2 *H* (06/03/22 9:37 AM) Blood Pressure [90-138/55-84 mm Hg] 117/ 71mm Hg (06/03/22 9:37 AM) Respiratory Rate [16-30 br/min] 18 br/mi n (06/03/22 9:37 AM) Temperature [96.8-100.4 DegF] 97.9 DegF (06/03/22 9:37 AM) Mode of Delivery (Oxygen) Room air (06/03/22 9:37 AM) Blood pressure sites Arm, left (06/03/22 9:37 AM) Temperature Route Oral (06/03/22 9:37 AM) Weight Obtained Via Standing scale (06/03/22 9:37 AM) Social History Social History Type Response Smoking Status Former smoker, quit more than 30 days ago; Total pack years: 27; Started at age: 20; Stopped at age: 47; entered on: 08/10/18 Sex Patient Care team information Care Team Personnel Name: Cinthia Reynolds Position: [facility] Associate Professional Member Role: PCP Address: Address: [address] [place] [address]- Care Team Related Persons Name: CRISTOPHER HUERTA Address: home [address] [place] [address]
--- OUTSIDE RECORDS SUMMARY | 2023-06-07 06:09 | XMS_ITS | Continuity of Care Document ---
Author Name Unknown Organization [facility] Address [address] [place] [address]- Care Team Providers Care Flooring Installer Name Role Phone Passer Cinthia MALIN Primary Care Physician Encounter [facility] [place] Date(s): 04/13/19 - 07/23/19 [facility]/[address] [address]- [facility] Attending Physician: Not on Staff, Attending MD Allergies, Adverse Reactions, Alerts Substance Reaction Severity Status NKA Active Immunizations Given and Recorded Vaccine Date Status Refusal Reason Tetanus-Diphth Toxoids, Adult (oldterm) 1 12/02/11 Given 1Admin Note: vis given 05/03/08 Medications Flovent HFA 110 mcg/inh inhalation aerosol = 220 mcg, Inhalation, 2 times a day, for asthma control rinse mouth and throat after use label in pashto, # 1 each, 6 Refills, Maintenance, 11/30/18 11:30:27 EDT Start Date: 11/30/18 Status: Ordered ProAir HFA 90 mcg/inh inhalation aerosol with adapter 2, puffs, Inhalation, Every 4 hours, PRN, # 8.5 Gm, Refills 6, Tot. Refills 6, Maintenance, 03/02/19 10:46:43 EDT, Aerosol, Route to Pharmacy Electronically, [id number], [facility] #[id number] Start Date: 03/02/19 Status: Ordered Protonix 40 mg oral delayed release tablet 1 tablet = 40 mg, By Mouth, 2 times a day, for stomach pain label in pashto, # 30 tablet, 11 Refills, Maintenance, 07/12/19 16:50:00 EST, EC Tablet, 167.64, cm, 07/12/19 16:27:00 EST, Height, 82.72,kg, 07/12/19 16:27:00 EST, Dry Weight Start Date: 07/12/19 Status: Ordered Singulair 10 mg oral tablet 10 mg, 1, tablet, By Mouth, Daily, for allergies and asthma label in pashto, # 30 tablet, Refills 11, Tot. Refills 11, Maintenance, 07/12/19 16:50:00 EST, Route to Pharmacy Electronically, [facility] #[id number], 167.64, cm, 07/12/19 16:27:00 E... Start Date: 07/12/19 Status: Ordered ZyrTEC 10 mg oral tablet 1 tablet = 10 mg, By Mouth, Daily, for allergies label in pashto, # 30 tablet, 11 Refills, Maintenance, 07/12/19 16:50:00 EST, Tablet, [facility] #[id number], 167.64, cm, 07/12/19 16:27:00 EST,Height, 82.72, kg, 07/12/19 16:27:00 EST, Dry Weight Start Date: 07/12/19 Status: Ordered Problem List Condition Effective Dates [...]
--- OUTSIDE RECORDS SUMMARY | 2023-06-07 06:09 | XMS_ITS | Continuity of Care Document ---
Author Name Unknown Organization [facility] Address [address] [place] [address]- Care Team Providers Care Naumkeag Operator Name Role Phone Cinthia Reynolds Primary Care Physician [place] [facility] [place] - 11/02/22 [facility] [address]- Attending Physician: Cinthia Reynolds Allergies, Adverse Reactions, [...] Refills, Soft Stop, 03/11/22 14:15:00 EDT, Suspension, [id number], Partial fill upon patient request if the prescription is for a schedule II opioid drug., 0.5 mL Intramuscular Once, 170,... Start Date: 03/11/22 Status: Ordered CeleBREX 200 mg oral capsule 1 capsule = 200 mg, By Mouth, 2 times a day, with food for right knee pain label in tunisian, # 60 capsule, 2 Refills, Maintenance, 09/19/22 11:26:00 EDT, Capsule, [facility] [place]-[id number], Partial fill upon patient request if the prescripti... Start Date: 09/19/22 Status: Ordered influenza virus vaccine, inactivated adjuvanted preservative-free quadrivalent intramuscular susp 0.5 mL, Intramuscular, Once, # 0.5 mL, 0 Refills, Soft Stop, 03/11/22 14:15:00 EDT, Suspension, [facility] [place]-[id number], Partial fill upon patient request if the prescription is for a schedule II opioid drug., 0.5 mL Intramuscular Once, 170... Start Date: 03/11/22 Status: Ordered ProAir HFA 90 mcg/inh inhalation aerosol with adapter 2, puffs, Inhalation, Every 4 hours, PRN, # 8.5 Gm, Refills 11, Tot. Refills 11, Maintenance, 03/11/22 14:14:00 EDT, Aerosol, Route to Pharmacy Electronically, NCPDP_[id number], [facility] [place]-[id number], 170, cm, 03/11/22 13:52:00 EDT, Height Start Date: 03/11/22 Status: Ordered Shingrix intramuscular injection = 0.5 mL, Intramuscular, Once, repeat dose in 2 to 6 months, # 2 each, 0 Refills, Soft Stop, 09/19/22 11:10:00 EDT, Powder, [facility] [place]-[id number], Partial fill upon patient request if the prescription is for a schedule II opioid drug., 0.... Start Date: 09/19/22 Status: Ordered Symbicort 80mcg/4.5mcg Inhaler 2, puffs, Inhalation, 2 times a day, for asthma control rinse mouth and throat after use Label in tunisian, # 1 each, Refills 11, Tot. Refills 11, Maintenance, 03/11/22 14:14:00 EDT, Aerosol, Route toPharmacy Electronically, NCPDP_ID- [id number], [place]... Start Date: 03/11/22 Status: Ordered Problem List [...] Care Team Personnel Name: Cinthia Reynolds Position: [facility] PCO Associate Professional Member Role: PCP Address: Address: [address] [place] [address]- Care Team Related Persons Name: CRISTOPHER HUERTA Address: home [address] [place] [address]
--- OUTSIDE RECORDS SUMMARY | 2023-06-07 06:09 | XMS_ITS | Continuity of Care Document ---
Author Name Unknown Organization [facility] Address [address] [place] [address]- Care Team Providers Care Ui Designer Name Role Phone Passer Cinthia MALIN Primary Care Physician Encounter [facility] Date(s): 11/09/20 - 12/09/20 [facility]/[address] [address]- Allergies, Adverse Reactions, Alerts Substance Reaction Severity [...] mouth and throat after use label in puerto rican, # 1 each, 11 Refills, Maintenance, 04/28/20 14:55:00 EST, [email or web address] #[id number], 167.64, cm, 04/28/20 14:27:00 EST, Height, 82.72, kg,... Start Date: 04/28/20 Status: Ordered ProAir HFA 90 mcg/inh inhalation aerosol with adapter 2, puffs, Inhalation, Every 4 hours, PRN, # 8.5 Gm, Refills 11, Tot. Refills 11, Maintenance, 04/28/20 14:55:00 EST, Aerosol, Route to Pharmacy Electronically, [id number], [facility] #[id number], 167.64, cm, 04/28/20 14:... Start Date: 04/28/20 Status: Ordered Protonix 40 mg oral delayed release tablet 1 tablet = 40 mg, By Mouth, 2 times a day, for stomach pain label in puerto rican, # 30 tablet, 11 Refills, Maintenance, 05/26/20 13:38:00 EST, EC Tablet, 167.64, cm, 05/26/20 11:25:00 EST, Height, 82.72,kg, 07/12/19 16:27:00 EST, Dry Weight Start Date: 05/26/20 Status: Ordered Singulair 10 mg oral tablet 10 mg, 1, tablet, By Mouth, Daily, for allergies and asthma label in puerto rican, # 30 tablet, Refills 11, Tot. Refills 11, Maintenance, 04/28/20 14:55:00 EST, Route to Pharmacy Electronically, [facility] #[id number], 167.64, cm, 04/28/20 14:27:00 E... Start Date: 04/28/20 Status: Ordered ZyrTEC 10 mg oral tablet 1 tablet = 10 mg, By Mouth, Daily, for allergies label in puerto rican, # 30 tablet, 11 Refills, Maintenance, 04/28/20 14:55:00 EST, Tablet, [facility] #[id number], 167.64, cm, 04/28/20 14:27:00 EST,Height, 82.72, kg, [...]
--- OUTSIDE RECORDS SUMMARY | 2023-06-07 06:09 | XMS_ITS | Continuity of Care Document ---
Author Name Unknown Organization [facility] Address Unknown Care Team Providers Care Audio Engineer Name Role Phone Cinthia Reynolds Primary Care Physician Encounter [facility] [place] Date(s): 10/19/20 - 02/16/21 [facility] Attending Physician: Cinthia Reynolds Admitting Physician: Cinthia Reynolds Referring Physician: Cinthia Reynolds Allergies, Adverse Reactions, [...] mouth and throat after use label in angolan, # 1 each, 11 Refills, Maintenance, 04/28/20 14:55:00 EST, [facility] #[id number], 167.64, cm, 04/28/20 14:27:00 EST, Height, 82.72, kg,... Start Date: 04/28/20 Status: Ordered ProAir HFA 90 mcg/inh inhalation aerosol with adapter 2, puffs, Inhalation, Every 4 hours, PRN, # 8.5 Gm, Refills 11, Tot. Refills 11, Maintenance, 04/28/20 14:55:00 EST, Aerosol, Route to Pharmacy Electronically, [id number], [facility] #[id number], 167.64, cm, 04/28/20 14:... Start Date: 04/28/20 Status: Ordered Protonix 40 mg oral delayed release tablet 1 tablet = 40 mg, By Mouth, 2 times a day, for stomach pain label in angolan, # 30 tablet, 11 Refills, Maintenance, 05/26/20 13:38:00 EST, EC Tablet, 167.64, cm, 05/26/20 11:25:00 EST, Height, 82.72,kg, 07/12/19 16:27:00 EST, Dry Weight Start Date: 05/26/20 Status: Ordered Singulair 10 mg oral tablet 10 mg, 1, tablet, By Mouth, Daily, for allergies and asthma label in angolan, # 30 tablet, Refills 11, Tot. Refills 11, Maintenance, 04/28/20 14:55:00 EST, Route to Pharmacy Electronically, [facility] #[id number], 167.64, cm, 04/28/20 14:27:00 E... Start Date: 04/28/20 Status: Ordered ZyrTEC 10 mg oral tablet 1 tablet = 10 mg, By Mouth, Daily, for allergies label in angolan, # 30 tablet, 11 Refills, Maintenance, 04/28/20 14:55:00 EST, Tablet, [facility] #[id number], 167.64, cm, 04/28/20 14:27:00 EST,Height, 82.72, kg, [...]
--- OUTSIDE RECORDS SUMMARY | 2023-06-07 06:09 | XMS_ITS | Continuity of Care Document ---
Author Name Unknown Organization [facility] Address [address] [place] [address]- Care Team Providers Care Statement Processor Name Role Phone Passer Cinthia MALIN Primary Care Physician [place] [facility] [place] - 07/20/22 [facility] [address] [place] [address]- Allergies, Adverse Reactions, Alerts No Known Allergies [...] Refills, Soft Stop, 03/11/22 14:15:00 EDT, Suspension, [id number], Partial fill upon patient request if the prescription is for a schedule II opioid drug., 0.5 mL Intramuscular Once, 170,... Start Date: 03/11/22 Status: Ordered influenza virus vaccine, inactivated adjuvanted preservative-free quadrivalent intramuscular susp 0.5 mL, Intramuscular, Once, # 0.5 mL, 0 Refills, Soft Stop, 03/11/22 14:15:00 EDT, Suspension, [facility]-[id number], Partial fill upon patient request if the prescription is for a schedule II opioid drug., 0.5 mL Intramuscular Once, 170... Start Date: 03/11/22 Status: Ordered ProAir HFA 90 mcg/inh inhalation aerosol with adapter 2, puffs, Inhalation, Every 4 hours, PRN, # 8.5 Gm, Refills 11, Tot. Refills 11, Maintenance, 03/11/22 14:14:00 EDT, Aerosol, Route to Pharmacy Electronically, NCPDP_[id number], [facility]-[id number], 170, cm, 03/11/22 13:52:00 EDT, Height Start Date: 03/11/22 Status: Ordered Protonix 40 mg oral delayed release tablet 1 tablet = 40 mg, By Mouth, 2 times a day, for stomach pain label in vatican citizen, # 180 tablet, 1 Refills, Maintenance, 06/03/22 9:47:00 EST, EC Tablet, 170, cm, 06/03/22 9:37:00 EST, Height Start Date: 06/03/22 Status: Ordered Symbicort 80mcg/4.5mcg Inhaler 2, puffs, Inhalation, 2 times a day, for asthma control rinse mouth and throat after use Label in vatican citizen, # 1 each, Refills 11, Tot. Refills 11, Maintenance, 03/11/22 14:14:00 EDT, Aerosol, Route toPharmacy Electronically, NCPDP_ID- [id number], [place]... Start Date: 03/11/22 Status: Ordered Problem List [...] Associate Professional Member Role: PCP Address: Address: [address] [place] [address] Care Team Related Persons Name: CRISTOPHER HUERTA Address: home [address] [place] [address]
--- OUTSIDE RECORDS SUMMARY | 2023-06-07 06:09 | XMS_ITS | Continuity of Care Document ---
Author Name Unknown Organization [facility] Address [address] [place] [address]- Care Team Providers Care Control Clerk Food And Beverage Name Role Phone Cinthia Reynolds Primary Care Physician Encounter [facility] [place] [facility] [id number] Date(s): 08/15/22 - 12/13/22 [facility] [address] [place] [address]- Attending Physician: Ebenezer Vicente MD Admitting Physician: [...] Refills, Soft Stop, 03/11/22 14:15:00 EDT, Suspension, [id number], Partial fill upon patient request if the prescription is for a schedule II opioid drug., 0.5 mL Intramuscular Once, 170,... Start Date: 03/11/22 Status: Ordered CeleBREX 200 mg oral capsule 1 capsule = 200 mg, By Mouth, 2 times a day, with food for right knee pain label in botswanan, # 60 capsule, 2 Refills, Maintenance, 09/19/22 11:26:00 EDT, Capsule, [facility]-[id number], Partial fill upon patient request if the prescripti... Start Date: 09/19/22 Status: Ordered influenza virus vaccine, inactivated adjuvanted preservative-free quadrivalent intramuscular susp 0.5 mL, Intramuscular, Once, # 0.5 mL, 0 Refills, Soft Stop, 03/11/22 14:15:00 EDT, Suspension, [facility]-[id number], Partial fill upon patient request if the prescription is for a schedule II opioid drug., 0.5 mL Intramuscular Once, 170... Start Date: 03/11/22 Status: Ordered ProAir HFA 90 mcg/inh inhalation aerosol with adapter 2, puffs, Inhalation, Every 4 hours, PRN, # 8.5 Gm, Refills 11, Tot. Refills 11, Maintenance, 03/11/22 14:14:00 EDT, Aerosol, Route to Pharmacy Electronically, NCPDP_ID-[id number], [facility]-[id number], 170, cm, 03/11/22 13:52:00 EDT, Height Start Date: 03/11/22 Status: Ordered Shingrix intramuscular injection = 0.5 mL, Intramuscular, Once, repeat dose in 2 to 6 months, # 2 each, 0 Refills, Soft Stop, 09/19/22 11:10:00 EDT, Powder, [facility]-[id number], Partial fill upon patient request if the prescription is for a schedule II opioid drug., 0.... Start Date: 09/19/22 Status: Ordered Symbicort 80mcg/4.5mcg Inhaler 2, puffs, Inhalation, 2 times a day, for asthma control rinse mouth and throat after use Label in botswanan, # 1 each, Refills 11, Tot. Refills 11, Maintenance, 03/11/22 14:14:00 EDT, Aerosol, Route toPharmacy Electronically, NCPDP_ID- [id number], [facility]... Start Date: 03/11/22 Status: Ordered Problem List [...] Associate Professional Member Role: PCP Address: Address: [address] [place] [address]- Care Team Related Persons Name: CRISTOPHER HUERTA Address: [address] [place] [address]
--- OUTSIDE RECORDS SUMMARY | 2023-06-07 06:09 | XMS_ITS | Continuity of Care Document ---
Author Name Unknown Organization [facility] Address [address] [place] [address]- Care Team Providers Care Rn Mds Coordinator Name Role Phone Passer Cinthia MALIN Primary Care Physician Encounter [facility] [place] Date(s): 10/10/20 - 11/09/20 [facility]/[address] [address]- Allergies, Adverse Reactions, Alerts Substance Reaction Severity [...] each, 11 Refills, Maintenance, 04/28/20 14:55:00 EST, [facility] #[id number], 167.64, cm, 04/28/20 14:27:00 EST, Height, 82.72, kg,... Start Date: 04/28/20 Status: Ordered ProAir HFA 90 mcg/inh inhalation aerosol with adapter 2, puffs, Inhalation, Every 4 hours, PRN, # 8.5 Gm, Refills 11, Tot. Refills 11, Maintenance, 04/28/20 14:55:00 EST, Aerosol, Route to Pharmacy Electronically, [id number], [facility] #[id number], 167.64, cm, 04/28/20 14:... Start Date: 04/28/20 [...] 04/28/20 14:55:00 EST, Route to Pharmacy Electronically, [facility] #[id number], 167.64, cm, 04/28/20 14:27:00 E... Start Date: 04/28/20 Status: Ordered ZyrTEC 10 mg oral tablet 1 tablet = 10 mg, By Mouth, Daily, for allergies label in puerto rican, # 30 tablet, 11 Refills, Maintenance, 04/28/20 14:55:00 EST, Tablet, [facility] #[id number], 167.64, cm, 04/28/20 14:27:00 EST,Height, 82.72, kg, [...]
[2023-06-07 06:10] LABS: Basophils Percent Auto 0.3 % (0-2); Eosinophils Absolute Auto 0.2 X10*3/uL (0.0-0.4); Eosinophils Percent Auto 1.4 % (0-4); Hematocrit 46.9 % (42.0-52.0); Hemoglobin 15.6 g/dl (14.0-18.0); Imm Gran Abs Auto 0.02 X10*3/uL (0.00-0.03); Imm Gran Pct Auto 0.2 % (0.0-0.4); Lymphocytes Absolute Auto 0.8 X10*3/uL (1.2-4.9); Lymphocytes Percent Auto 7.6 % (20-40); MANUAL DIFF FLAG NO; Mean Corpuscular HGB Conc 33.3 g/dl (31.0-36.0); Mean Corpuscular Hemoglobin 29.5 pg (27.0-33.0); Mean Corpuscular Volume 88.8 fL (80.0-98.0); Mean Platelet Volume 9.6 fL (9.4-12.4); Monocytes Absolute Auto 0.5 X10*3/uL (0.1-1.2); Monocytes Percent Auto 4.9 % (2-11); Neutrophils Absolute Auto 9.2 x10*3/uL (2.0-8.3); Neutrophils Percent Auto 85.6 % (45-73); Platelet Count 232 X10*3/uL (160-400); Red Blood Count 5.28 X10*6/uL (4.60-5.80); Red Cell Distribution Width 12.4 % (11.0-16.0); White Blood Count 10.7 X10*3/uL (4.8-10.8)
[2023-06-07 06:26] LABS: Alanine Aminotransferase 22 U/L (0-40); Albumin Level 4.5 g/dL (3.5-5.0); Alkaline Phosphatase 68 U/L (39-117); Anion Gap 12 (12-20); Aspartate Amino Transferase 28 U/L (5-37); Bilirubin Total 0.7 mg/dL (0.0-1.0); Blood Urea Nitrogen 19 mg/dL (9-16); Calcium 9.8 mg/dL (8.4-10.2); Carbon Dioxide 26 mmol/L (22-29); Chloride 107 mmol/L (96-108); Creatinine Clr Calc Pharmacy 72.4; Estimated Glomerular Filt Rate > 60; Glucose Random 109 mg/dL (60-115); Lipase 23 U/L (8-78); Potassium 4.7 mmol/L (3.3-5.1); Sodium 140 mmol/L (135-145); Total Protein 8.1 g/dL (6.5-8.0)
--- NOTE | 2023-06-07 06:29 | PC.NURSE ---
Pt aox4 reporting generalized abd pain with diarrhea that began last night at 2300. VSS. Denies N/V and blood in the stool. Denies urinary discomfort. 20G IV line started on the R AC with no complication. Labs obtained and sent. Pending physician dante.
--- NOTE | 2023-06-07 06:45 | ED_ITS ---
HPI - Abdominal Pain General Chief Complaint: Abdominal Pain Stated Complaint: abd pain Time Seen by Provider: 06/07/23 06:27 Source: patient Mode of arrival: ambulatory Limitations: no limitations History of Present Illness HPI narrative: 53 yo male with no known medical history presents to the ER with generalized abdominal cramping, multiple episodes of non-bloody diarrhea since last evening after eating lao food brought into work by a coworker. No vomiting, fevers, chills, shortness of breath, chest pain. No recent travel or antibiotic use. Related Data Previous Rx's Medication Instructions Recorded acetaminophen 500 mg tablet 500 mg PO Q6H PRN fever or pain 12/01/22 #20 tabs cyclobenzaprine 10 mg tablet 10 mg PO TID PRN muscle spasm #7 12/01/22 tabs Allergies Allergy/AdvReac Type Severity Reaction Status Date / Time No Known Allergies Allergy Verified 12/01/22 20:09 Review of Systems Review of Systems Yes all other systems are reviewed and are negative Constitutional: Reports no additional constitutional complaints, Denies body ache(s), Denies chills, Denies fever(s), Denies headache(s) and Denies weakness Eyes: Reports no additional eye complaints and Denies change in vision Reports system reviewed and no additional complaints, except as documented, Denies dizziness, Denies headache(s), Denies nasal congestion, Denies nasal discharge and Denies neck pain Cardiovascular: Reports no additional cardiovascular complaints, Denies chest pain, Denies leg edema and Denies dyspnea Respiratory: Reports no additional respiratory complaints, Denies cough and Denies dyspnea Gastrointestinal: Reports no additional gastrointestinal complaints, Reports abdominal pain, Denies melena, Denies hematochezia, Reports diarrhea, Denies nausea and Denies vomiting Genitourinary: Denies urinary incontinence Musculoskeletal: Reports no additional musculoskeletal complaints, Denies back pain, Denies arthralgias, Denies joint swelling, Denies neck pain, Denies numbness and Denies tingling Skin/Breast: Reports system reviewed and no additional complaints, except as docu and Denies rash Reports system reviewed and no additional complaints, except as documented, Denies Abnormal speech present, Denies dizziness, Denies headache(s), Denies numbness, Denies tingling and Denies weakness PMF Past Medical History Attestation statement: The following information was validated with the patient. Source: old records reviewed and nursing notes reviewed Social History Social History Alcohol intake: current Alcohol intake frequency: a few times a week Alcohol type: beer Smoked in Last 30 Days: No Use of substances other than those prescribed or required for medical reasons: No Advance Directives: No Advance Directives Information Provided: No Physical Exam ED Vital Signs: Vital Signs - 24 hr 06/07/23 05:19 06/07/23 06:03 06/07/23 08:05 Temperature 97.0 F 98.3 F 98.3 F Pulse Rate 67 69 77 Respiratory Rate 16 15 16 Blood Pressure 117/73 123/80 133/76 Pulse Oximetry 96 97 100 Oxygen Delivery Method Room Air Room Air Room Air BMI result Body Mass Index 28.0 Const General: cooperative, healthy appearing, comfortable and no acute distress Orientation/consciousness: patient oriented x3 Limitations: no limitations HENMT Head: Yes normal to inspection Ears: hearing grossly normal bilaterally General nose exam: Normal external nose present Face and sinus: Yes normal facial exam Mouth: Normal oral and palatal mucosa present Throat: Yes posterior oropharynx normal Eyes General: appearance normal, both eyes and all related structures Pupils: Equal, round and reactive pupils present Neck Neck: Yes normal visual inspection Chest Chest palpation & inspection: normal inspection of the chest Resp Effort & Inspection: normal respiratory effort Auscultation: clear to auscultation bilaterally Cardio Rate: regular rate Rhythm: regular rhythm Peripheral pulses: Peripheral pulses 2+ throughout GI Inspection: Yes normal to inspection and No distended Palpation (GI): Soft to palpation and nontender Auscultation: normal bowel sounds Back/Spine/Pelvis Thoracic/Lumbar Spine: thoracic and lumbar spine normal to inspection Skin General skin exam: no rashes or lesions noted Neuro General: patient oriented x3, no focal motor deficits and normal sensation to monofilament Cranial nerves: Yes Equal, round and reactive pupils present Cognition (Neuro): normal cognition Speech: No Abnormal speech present Gait exam (Neuro): Normal gait present Motor exam (neuro): 5/5 motor strength present throughout Extrem General: Yes normal to inspection, Yes no pedal edema and Yes no calf tenderness Course Course Course Narrative: Labs unremarkable. Unable to provide stool sample while in the Emergency Room. Wanted to leave before flu/covid/rsv results are back or urinalysis results. Tolerating PO. Abdomen soft/nontender with no focal findings. VSS. Likely viral syndrome. Doubt acute abdomen. Reviewed worrisome signs and symptoms of when to return to the emergency room. Comfortable plan for discharge home Reevaluation(s) Reevaluation #1: [id number]-Called and informed of RSV results Medical Decision Making Medical Decision Making [facility] Narrative: 53 yo male with no known medical history presents to the ER with generalized abdominal cramping, multiple episodes of non-bloody diarrhea since last evening after eating lao food brought into work by a coworker. No vomiting, fevers, chills, shortness of breath, chest pain. No recent travel or antibiotic use.? No focal abdominal pain on exam. Abdomen soft, nontender. +BS. Will obtain labs, stool studies, viral testing. Will give IVF, bentyl and re- assess Differential Diagnosis Differential Diagnoses: The differential diagnosis associated with the presentation includes gastroenteritis low concern for ischemic colitis, infectious diarrhea, diverticulitis, SBO, acute appendicitis Admission/Observation Consideration of admission/observation: Escalation of care including admission/observation considered No focal abdominal pain to suggest need for CT abdomen and pelvis/advanced imaging Lab Data [facility] Lab Attestation statement: I reviewed the patient's lab results. RSV + 06/07/23 06:06 06/07/23 06:06 Labs: Lab Results 06/07/23 06/07/23 Range/Units 06:06 08:02 WBC 10.7 (4.8-10.8) X10*3/uL RBC 5.28 (4.60-5.80) X10*6/uL Hgb 15.6 (14.0-18.0) g/dl Hct 46.9 (42.0-52.0) % MCV 88.8 (80.0-98.0) fL MCH 29.5 (27.0-33.0) pg MCHC 33.3 (31.0-36.0) g/dl RDW 12.4 (11.0-16.0) % Plt Count 232 (160-400) X10*3/uL MPV 9.6 (9.4-12.4) fL Immature Gran % (Auto) 0.2 (0.0-0.4) % Neut % (Auto) 85.6 H (45-73) % Lymph % (Auto) 7.6 L (20-40) % [place] % (Auto) 4.9 (2-11) % Eos % (Auto) 1.4 (0-4) % Baso % (Auto) 0.3 (0-2) % Lymph # (Auto) 0.8 L (1.2-4.9) X10*3/uL [place] # (Auto) 0.5 (0.1-1.2) X10*3/uL Eos # (Auto) 0.2 (0.0-0.4) X10*3/uL Baso # (Auto) 0.0 (0.0-0.2) X10*3/uL Abs Immat Gran (auto) 0.02 (0.00-0.03) X10*3/uL Absolute Neuts (auto) 9.2 H (2.0-8.3) x10*3/uL Absolute Nucleated RBC 0.000 (0.0-0.012) X10*3/uL Nucleated RBC % (auto) 0.0 (0.0-0.2) /100WBC Sodium 140 (135-145) mmol/L Potassium 4.7 (3.3-5.1) mmol/L Chloride 107 (96-108) mmol/L Carbon Dioxide 26 (22-29) mmol/L Anion Gap 12 (12-20) BUN 19 H (9-16) mg/dL Creatinine 1.19 (0.5-1.4) mg/dL Estim Creat Clear Calc 72.4 Estimated GFR > 60 Random Glucose 109 (60-115) mg/dL Calcium 9.8 (8.4-10.2) mg/dL Total Bilirubin 0.7 (0.0-1.0) mg/dL AST 28 (5-37) U/L ALT 22 (0-40) U/L Alkaline Phosphatase 68 (39-117) U/L Total Protein 8.1 H (6.5-8.0) g/dL Albumin 4.5 (3.5-5.0) g/dL Lipase 23 (8-78) U/L Influenza Type A (PCR) NEGATIVE (Negative) Influenza Type B (PCR) NEGATIVE (Negative) RSV RNA Qual (PCR) POSITIVE A (Negative) SARS-CoV-2 RNA (RT-PCR) NEGATIVE (Negative) Tests considered The following testing was considered but not selected: No focal abdominal pain to suggest need for CT abdomen and pelvis Prescription Management I considered prescription management with: Antibiotic Medications Administered Discontinued Medications Generic Name Dose Route Start Last Admin Trade Name Freq PRN Reason Stop Dose Admin Dicyclomine HCl 10 mg 06/07/23 06:40 06/07/23 07:33 Dicyclomine Hcl 10 Mg Capsule PO 06/07/23 06:41 10 mg ONCE ONE Administration Sodium Chloride 1,000 mls @ 999 mls/hr 06/07/23 06:40 06/07/23 09:38 Ns IV 06/07/23 07:40 Infused .Q1H1M STA Infusion Discharge Plan Discharge Clinical Impression: Acute viral syndrome Patient Disposition: Home, Self-Care Instructions: Viral Syndrome (ED) Additional Instructions: Testing for flu, covid and rsv are pending. I will call you with the results Take motrin/tylenol for pain as needed Increase fluids, rest Return for worsening abdominal pain, vomiting, fever, bloody stools Prescriptions: No Action acetaminophen 500 mg tablet 500 mg PO Q6H PRN (Reason: fever or pain) Qty: 20 0RF cyclobenzaprine 10 mg tablet 10 mg PO TID PRN (Reason: muscle spasm) Qty: 7 0RF Referrals: Physician,None [Primary Care Provider] - 1 week Stand Alone Forms: Work/School Release Interventions: ED Discharge Assessment Last Done: 06/07/23 10:08 Discharge Date/Time: 06/07/23 10:09
[2023-06-07] MEDS: Dicyclomine HCl 10 MG CAPSULE PO (07:33)
[2023-06-07] MEDS: 0.9 % Sodium Chloride 1,000 ML 999 ML IV (07:33)
--- NOTE | 2023-06-07 07:42 | PC.NURSE ---
patient resting quietly in room with no obvious signs/symptoms of distress. medicated per the MAR, call cha within reach.
[2023-06-07 08:05] VITALS: BP 133/76; PULSE 77; RESP 16; TEMP 36.8; O2SAT 100
[2023-06-07 10:15] LABS: Influenza A PCR NEGATIVE (Negative); Influenza B PCR NEGATIVE (Negative); Resp Syncy Virus RNA Qual PCR POSITIVE (Negative); SARS COV2 PCR INHOUSE NEGATIVE (Negative)
== END 2023-06-07 10:09 | disposition home or self-care (01) ==
PROVIDERS: Emergency Medicine; Nurse Practitioner Family; Emergency Provider Student in an Organized Health Care Education/Training Program
DX: R10.9 Unspecified abdominal pain (principal); B97.4 Respiratory syncytial virus as the cause of diseases classified elsewhere; Z20.822 Contact with and (suspected) exposure to COVID-19; Z20.828 Contact with and (suspected) exposure to other viral communicable diseases
CPT/HCPCS: 0241U; 36415; 80053; 83690; 85025; 96360; 96361; 99284

== ENCOUNTER 2024-04-06 08:49 | Emergency (ER) | payer OTHER, SELFPAY ==
--- NOTE | ~2024-04-06 | XR_ITS ---
EXAMINATION: XR CHEST 2 VIEW CLINICAL INFORMATION: Cough COMPARISON: None TECHNIQUE: PA and lateral views of the chest obtained. FINDINGS: The lungs are clear. There are no pleural effusions. The cardiomediastinal silhouette is normal. XR/XR chest 2V IMPRESSION: No acute cardiopulmonary disease. Electronically signed by: Jarod Lee MD 04/06/2024 11:19 AM EDT
[2024-04-06 09:01] VITALS: BP 124/75; PULSE 77; RESP 18; TEMP 37.1; O2SAT 96; BMI 33.2
--- NOTE | 2024-04-06 09:25 | ECG_ITS ---
Test Reason : LIGHTHEADED Blood Pressure : / mmHG Vent. Rate : 056 BPM Atrial Rate : 056 BPM P-R Int : 120 ms QRS Dur : 086 ms QT Int : 386 ms P-R-T Axes : 001 033 031 degrees QTc Int : 372 ms Sinus bradycardia Otherwise normal ECG No previous ECGs available Referred By: Kandace Villagran Electronically Signed By:Dave Gomez
[2024-04-06 09:37] LABS: IDNOW Serial# 08D9AD1C; Strep A Nucleic Acid Negative (Negative)
[2024-04-06 10:33] LABS: Influenza A PCR NEGATIVE (Negative); Influenza B PCR NEGATIVE (Negative); Resp Syncy Virus RNA Qual PCR NEGATIVE (Negative); SARS COV2 PCR INHOUSE NEGATIVE (Negative)
--- NOTE | 2024-04-06 11:27 | ED.URI ---
HPI - URI/Sore Throat General Chief Complaint: Upper Respiratory Symptoms Stated Complaint: Body aches, dizziness Time Seen by Provider: 04/06/24 09:05 Source: patient, RN notes reviewed and old records reviewed Mode of arrival: ambulatory History of Present Illness ED Provider: Kandace Villagran PA-C [facility] Narrative: 53-year-old male with no significant past medical history presenting to the ED complaining of diffuse myalgias, sore throat, congestion, dry cough x this morning. Denies known fever, SOB, CP, nausea/vomiting, abdominal pain. Related Data Previous Rx's ?Medication ?Instructions ?Recorded acetaminophen 500 mg tablet 500 mg PO Q6H PRN fever or pain 12/01/22 #20 tabs cyclobenzaprine 10 mg tablet 10 mg PO TID PRN muscle spasm #7 12/01/22 tabs acetaminophen 500 mg tablet 500 mg PO Q6H PRN fever or pain 04/06/24 (Tylenol Extra Strength) #14 tabs ibuprofen 400 mg tablet 400 mg PO Q8H PRN fever or pain 04/06/24 #20 tabs Allergies Allergy/AdvReac Type Severity Reaction Status Date / Time No Known Allergies Allergy Verified 04/06/24 09:03 Review of Systems Review of Systems: Yes all other systems are reviewed and are negative Constitutional: Constitutional: Reports as per [facility] Past Medical History Attestation statement: The following information was validated with the patient. Source: old records reviewed Social History Social History Alcohol intake: current Alcohol intake frequency: a few times a week Alcohol type: beer Advance Directives: No Advance Directives Information Provided: Yes Do you have a plan to hurt others: No Plan Physical Exam Vital Signs: Vital Signs: Last Vital Signs Temp 98.8 F 04/06/24 11:40 Pulse 77 04/06/24 11:40 Resp 18 04/06/24 11:40 BP 124/75 04/06/24 11:40 Pulse Ox 96 04/06/24 11:40 O2 Del Method Room Air 04/06/24 11:40 BMI result Body Mass Index 33.2 Const: General: cooperative, healthy appearing and no acute distress Orientation/consciousness: patient oriented x3 Limitations: no limitations HEENT: Head: Yes normal to inspection and Yes atraumatic Ears: hearing grossly normal bilaterally General nose exam: Normal external nose present Face and sinus: Yes normal facial exam Mouth: Normal oral and palatal mucosa present and no drooling Throat: Yes posterior oropharynx normal, Yes uvula midline, No peritonsillar mass, No uvula laterally displaced and No uvular edema Eyes: General: appearance normal, both eyes and all related structures EOM: EOMs intact bilaterally Neck: Neck: Yes normal visual inspection and Yes no meningeal signs Resp: Effort & Inspection: normal respiratory effort, no respiratory distress and no stridor Auscultation: clear to auscultation bilaterally, no crackles, no rales and no wheezes Cardio: Rate: regular rate Heart sounds: S1 normal heart sound present and S2 normal heart sound present GI: Inspection: Yes normal to inspection Palpation (GI): Soft to palpation, nontender, no guarding and not rigid Skin: Rashes: no rashes Wounds: no wounds Neuro: General: patient oriented x3, tone normal and no meningeal signs Cranial nerves: Yes CN's II-XII intact bilaterally Gait exam (Neuro): Normal gait present Extrem: General: Yes normal to inspection Course Course Course Narrative: -1130--COVID/flu/RSV and rapid strep negative XR chest 2V IMPRESSION: No acute cardiopulmonary disease. Results discussed with patient including worrisome signs and symptoms and strict return precautions, and when to return to the emergency department. They verbalized understanding and feel safe for discharge at this time. Medical Decision Making Medical Decision Making [facility] Narrative: 53-year-old male with no significant past medical history presenting to the ED complaining of diffuse myalgias, sore throat, congestion, dry cough x this morning. On exam vital signs stable, NAD, nontoxic appearing, lungs CTA, oropharynx WNL, abdomen soft/nontender, physical exam otherwise benign. Concern for viral illness for strep pharyngitis. No evidence of KITCHEN STEWARDESS or retropharyngeal abscess. Lower suspicion for ACS/PE. Rule out pneumonia Plan: EKG, Rapid strep, viral testing, CXR Please refer to course for remaining clinical decision making, interpretation of labs/imaging results, and discussions with consultants and/or family members. Differential Diagnosis Differential Diagnoses: The differential diagnosis associated with the presentation includes As above Admission/Observation Consideration of admission/observation: Escalation of care including admission/observation considered Lab Data [facility] Lab Attestation statement: I reviewed the patient's lab results. Labs: Lab Results 04/06/24 Range/Units 09:06 Influenza Type A (PCR) NEGATIVE (Negative) Influenza Type B (PCR) NEGATIVE (Negative) RSV RNA Qual (PCR) NEGATIVE (Negative) SARS-CoV-2 RNA (RT-PCR) NEGATIVE (Negative) S. pyogenes GrpA CHERYL Negative (Negative) Radiology Impression Discussion of test interpretation with radiology: I have reviewed the radiologist's reading. External Record Review External record reviewed: Inpatient record, Office record, Outpatient record, Prior outpatient labs, Prior outpatient radiology, Primary care record and Outside ED record Tests considered The following testing was considered but not selected: As above Prescription Management I considered prescription management with: Pain Medication Social Determinants Patient?s care significantly limited by Social Determinants of Health including: Other Social Determinant of Health Discharge Plan Discharge Clinical Impression: Upper respiratory infection Patient Disposition: Home, Self-Care Instructions: Upper Respiratory Infection (DC) Additional Instructions: You tested negative for COVID, flu, RSV, and strep throat Your x-rays unremarkable You have a virus No antibiotics are indicated at this time Make sure you are staying hydrated. Drink plenty of fluids. Rest Alternate Tylenol and Motrin at home as needed for body aches and fever Follow-up with your doctor. If symptoms persist or worsen return to the emergency department *If you are a child & not tolerating liquid or urinating for more than 6 hours, or fevers are uncontrolled with medications at home, return to the emergency department* Prescriptions: New acetaminophen [Tylenol Extra Strength] 500 mg tablet 500 mg PO Q6H PRN (Reason: fever or pain) Qty: 14 0RF ibuprofen 400 mg tablet 400 mg PO Q8H PRN (Reason: fever or pain) Qty: 20 0RF No Action acetaminophen 500 mg tablet 500 mg PO Q6H PRN (Reason: fever or pain) Qty: 20 0RF cyclobenzaprine 10 mg tablet 10 mg PO TID PRN (Reason: muscle spasm) Qty: 7 0RF Referrals: Physician,Unknown J [Primary Care Provider] - 5 days Interventions: ED Discharge Assessment Last Done: 04/06/24 11:40 Discharge Date/Time: 04/06/24 11:41 Print Language: Tamaz[place]
[2024-04-06 11:40] VITALS: BP 124/75; PULSE 77; RESP 18; TEMP 37.1; O2SAT 96
== END 2024-04-06 11:41 | disposition home or self-care (01) ==
PROVIDERS: Emergency Provider Emergency Medicine
DX: J06.9 Acute upper respiratory infection, unspecified (principal); R00.1 Bradycardia, unspecified; M79.10 Myalgia, unspecified site; R42 Dizziness and giddiness; J02.9 Acute pharyngitis, unspecified; R05.9 Cough, unspecified; Z03.818 Encounter for observation for suspected exposure to other biological agents ruled out
CPT/HCPCS: 0241U; 71046; 87651; 93005; 99283

== ENCOUNTER → 2024-04-06 09:25 | Outpatient (BNV) | payer OTHER, SELFPAY | PROVIDERS: Emergency Provider Emergency Medicine; Visit Provider Internal Medicine Cardiovascular Disease | DX: R42 Dizziness and giddiness (principal) | CPT/HCPCS: 93010 ==

== ENCOUNTER 2024-06-19 20:46 | Emergency (ER) | payer OTHER, SELFPAY ==
--- NOTE | ~2024-06-19 | CT_ITS ---
CLINICAL HISTORY: b l flank pain, urinary frequnency hesitancy CT abdomen and pelvis without contrast Comparison: None Findings: No consolidation or effusion. Kidneys are normal in size. There is no hydronephrosis. No renal or ureteral stones. The spleen, pancreas, gallbladder and liver are normal in appearance. No bowel obstruction, pneumoperitoneum, or pneumatosis. Pelvic contents unremarkable. Normal appendix. Urinary bladder is decompressed. No acute fracture. IMPRESSION: No acute findings. This document has been electronically signed by: Jewel Stacy MD on 06/19/2024 21:56:46
--- NOTE | ~2024-06-19 | US_ITS ---
CLINICAL HISTORY: Testicular pain US Scrotum with Doppler Comparison: CT/SR - CT ABDOMEN PELVIS WO IV CON - 06/19/24 21:15 EST Findings: Right testicle normal size and echotexture, 4.8 x 2.0 x 3.1 cm. Left testicle normal size and echotexture, 4.6 x 2.0 x 3.0 cm. Color Doppler and arterial/venous spectral tracings of both testicles within normal limits. Normal epididymides. No varicoceles. Trace left hydrocele. IMPRESSION: Normal scrotal ultrasound. No evidence of torsion. This document has been electronically signed by: Jewel Stacy MD on 06/20/2024 01:31:19
[2024-06-19 20:51] VITALS: BP 130/81; PULSE 88; RESP 18; TEMP 36.7; O2SAT 96; BMI 30.4
--- NOTE | 2024-06-19 20:51 | ED_ITS ---
HPI - Male Genitourinary General Chief complaint: Urogenital-Male Stated complaint: ?uti Time Seen by Provider: 06/19/24 23:22 Related Data Previous Rx's ?Medication ?Instructions ?Recorded acetaminophen 500 mg tablet 500 mg PO Q6H PRN fever or pain 12/01/22 #20 tabs cyclobenzaprine 10 mg tablet 10 mg PO TID PRN muscle spasm #7 12/01/22 tabs acetaminophen 500 mg tablet 500 mg PO Q6H PRN fever or pain 04/06/24 (Tylenol Extra Strength) #14 tabs ibuprofen 400 mg tablet 400 mg PO Q8H PRN fever or pain 04/06/24 #20 tabs doxycycline hyclate 100 mg capsule 100 mg PO BID cough 10 days #20 06/20/24 caps Allergies Allergy/AdvReac Type Severity Reaction Status Date / Time No Known Allergies Allergy Verified 06/19/24 20:53 [facility] Social History Social History Alcohol intake: current Alcohol intake frequency: a few times a week Alcohol type: beer Advance Directives: No Advance Directives Information Provided: No Physical Exam 2 Vital Signs: Vital Signs: Last Vital Signs Temp 97.9 F 06/20/24 01:00 Pulse 55 06/20/24 01:00 Resp 17 06/20/24 01:00 BP 112/70 06/20/24 01:00 Pulse Ox 96 06/20/24 01:00 O2 Del Method Room Air 06/20/24 01:00 BMI result Body Mass Index 30.4 Course Course Course Narrative: This is a Rapid Medical Exam performed in triage by Kandace Villagran PA-C. Full HPI, ROS and PE to be performed by primary ED provider. 54-year-old male presenting to the ED c/o urinary frequency & hesitancy w/bilateral flank pain x now. denies dysuria, hematuria. PE: abdomen soft w/lower ttp & L CVAT Plan: labs, UA, CTAP Medications Administered Discontinued Medications Generic Name Dose Route Start Last Admin Trade Name Freq PRN Reason Stop Dose Admin Ceftriaxone Sodium 500 mg 06/20/24 00:50 06/20/24 01:29 Ceftriaxone Sodium 500 Mg Vial IM 06/20/24 00:51 500 mg ONCE ONE Administration Doxycycline Monohydrate 100 mg 06/20/24 00:51 06/20/24 01:29 Doxycycline Monohydrate 100 Mg Capsule PO 06/20/24 00:52 100 mg ONCE ONE Administration Medical Decision Making Lab Data 06/19/24 21:08 06/19/24 21:08 Labs: Lab Results 06/19/24 Range/Units 21:08 WBC 9.8 (4.8-10.8) X10*3/uL RBC 5.01 (4.60-5.80) X10*6/uL Hgb 15.1 (14.0-18.0) g/dl Hct 44.8 (42.0-52.0) % MCV 89.4 (80.0-98.0) fL MCH 30.1 (27.0-33.0) pg MCHC 33.7 (31.0-36.0) g/dl RDW 12.4 (11.0-16.0) % Plt Count 276 (160-400) X10*3/uL MPV 9.5 (9.4-12.4) fL Immature Gran % (Auto) 0.4 (0.0-0.4) % Neut % (Auto) 70.3 (45-73) % Lymph % (Auto) 19.3 L (20-40) % [place] % (Auto) 7.3 (2-11) % Eos % (Auto) 1.9 (0-4) % Baso % (Auto) 0.8 (0-2) % Lymph # (Auto) 1.9 (1.2-4.9) X10*3/uL [place] # (Auto) 0.7 (0.1-1.2) X10*3/uL Eos # (Auto) 0.2 (0.0-0.4) X10*3/uL Baso # (Auto) 0.1 (0.0-0.2) X10*3/uL Abs Immat Gran (auto) 0.04 H (0.00-0.03) X10*3/uL Absolute Neuts (auto) 6.9 (2.0-8.3) x10*3/uL Absolute Nucleated RBC 0.000 (0.0-0.012) X10*3/uL Nucleated RBC % (auto) 0.0 (0.0-0.2) /100WBC Sodium 140 (135-145) mmol/L Potassium 4.2 (3.3-5.1) mmol/L Chloride 107 (96-108) mmol/L Carbon Dioxide 26 (22-29) mmol/L Anion Gap 11 L (12-20) BUN 21 H (9-16) mg/dL Creatinine 1.31 (0.5-1.4) mg/dL Estim Creat Clear Calc 67.6 Estimated GFR 57 Random Glucose 113 (60-115) mg/dL Calcium 9.2 D (8.4-10.2) mg/dL Magnesium 2.2 (1.6-2.6) mg/dL Total Bilirubin 0.4 (0.0-1.0) mg/dL Direct Bilirubin 0.1 (0.0-0.5) mg/dL AST 37 (5-37) U/L ALT 32 (0-40) U/L Alkaline Phosphatase 79 (39-117) U/L Total Protein 8.0 (6.5-8.0) g/dL Albumin 4.3 (3.5-5.0) g/dL Urine Color Yellow Urine Appearance Clear Urine pH 5.5 (5.0-9.0) Ur Specific [place] >= 1.030 H (1.005-1.025) Urine Protein Negative (Neg-Trace) mg/dL Urine Glucose (UA) Negative (Negative) mg/dL Urine Ketones Negative (Negative) mg/dL Urine Blood Negative (Negative) Urine Nitrite Negative (Negative) Ur Leukocyte Esterase Negative (Negative) Discharge Plan Discharge Clinical Impression: Urethritis Patient Disposition: Home, Self-Care Instructions: Sexually Transmitted Diseases (ED), Safe Sex Practices (ED) Prescriptions: New doxycycline hyclate 100 mg capsule 100 mg PO BID 10 Days Qty: 20 0RF No Action acetaminophen 500 mg tablet 500 mg PO Q6H PRN (Reason: fever or pain) Qty: 20 0RF cyclobenzaprine 10 mg tablet 10 mg PO TID PRN (Reason: muscle spasm) Qty: 7 0RF acetaminophen [Tylenol Extra Strength] 500 mg tablet 500 mg PO Q6H PRN (Reason: fever or pain) Qty: 14 0RF ibuprofen 400 mg tablet 400 mg PO Q8H PRN (Reason: fever or pain) Qty: 20 0RF Referrals: Physician,Unknown J [Primary Care Provider] - 06/22/24 (Please get partner tested or treated. Prior to engaging in sexual activity) Print Language: [place]
[2024-06-19 21:26] LABS: MANUAL DIFF FLAG NO
[2024-06-19 21:30] LABS: Basophils Absolute Auto 0.1 X10*3/uL (0.0-0.2); Basophils Percent Auto 0.8 % (0-2); Eosinophils Absolute Auto 0.2 X10*3/uL (0.0-0.4); Eosinophils Percent Auto 1.9 % (0-4); Hematocrit 44.8 % (42.0-52.0); Hemoglobin 15.1 g/dl (14.0-18.0); Imm Gran Abs Auto 0.04 X10*3/uL (0.00-0.03); Imm Gran Pct Auto 0.4 % (0.0-0.4); Lymphocytes Absolute Auto 1.9 X10*3/uL (1.2-4.9); Lymphocytes Percent Auto 19.3 % (20-40); Mean Corpuscular HGB Conc 33.7 g/dl (31.0-36.0); Mean Corpuscular Hemoglobin 30.1 pg (27.0-33.0); Mean Corpuscular Volume 89.4 fL (80.0-98.0); Mean Platelet Volume 9.5 fL (9.4-12.4); Monocytes Absolute Auto 0.7 X10*3/uL (0.1-1.2); Monocytes Percent Auto 7.3 % (2-11); Neutrophils Absolute Auto 6.9 x10*3/uL (2.0-8.3); Neutrophils Percent Auto 70.3 % (45-73); Platelet Count 276 X10*3/uL (160-400); Red Blood Count 5.01 X10*6/uL (4.60-5.80); Red Cell Distribution Width 12.4 % (11.0-16.0); White Blood Count 9.8 X10*3/uL (4.8-10.8)
[2024-06-19 21:32] LABS: Appearance Urine Clear; Color Urine Yellow; Glucose Urine UA Negative (Negative); Leukocyte Esterase Urine Negative (Negative); Nitrite Urine Negative (Negative); PH 5.5 (5.0-9.0); Specific Gravity - Urine >= 1.030 (1.005-1.025); Urine Blood Negative (Negative); Urine Ketones Negative (Negative); Urine Protein Negative (Neg-Trace)
[2024-06-19 21:42] LABS: Alanine Aminotransferase 32 U/L (0-40); Albumin Level 4.3 g/dL (3.5-5.0); Alkaline Phosphatase 79 U/L (39-117); Anion Gap 11 (12-20); Aspartate Amino Transferase 37 U/L (5-37); Bilirubin Direct 0.1 mg/dL (0.0-0.5); Bilirubin Total 0.4 mg/dL (0.0-1.0); Blood Urea Nitrogen 21 mg/dL (9-16); Calcium 9.2 mg/dL (8.4-10.2); Carbon Dioxide 26 mmol/L (22-29); Chloride 107 mmol/L (96-108); Creatinine Clr Calc Pharmacy 67.6; Estimated Glomerular Filt Rate 57; Glucose Random 113 mg/dL (60-115); Magnesium 2.2 mg/dL (1.6-2.6); Potassium 4.2 mmol/L (3.3-5.1); Sodium 140 mmol/L (135-145)
--- NOTE | 2024-06-19 23:44 | ED.MALEGU ---
HPI - Male Genitourinary General Chief complaint: Urogenital-Male Stated complaint: ?uti Time Seen by Provider: 06/19/24 23:22 History of Present Illness HPI Narrative: Patient is a 54-year-old male with a history of having discharge from his penis. Also complaining of pain to the flank area. Patient is getting soon. Wants to know if he has a sexually transmitted disease. Patient complaining of frequency. Patient broke up with his ex-girlfriend about 4 months ago. No fever no chills. No chest pain. No shortness of breath. No nausea no vomiting no diarrhea Related Data Previous Rx's ?Medication ?Instructions ?Recorded acetaminophen 500 mg tablet 500 mg PO Q6H PRN fever or pain 12/01/22 #20 tabs cyclobenzaprine 10 mg tablet 10 mg PO TID PRN muscle spasm #7 12/01/22 tabs acetaminophen 500 mg tablet 500 mg PO Q6H PRN fever or pain 04/06/24 (Tylenol Extra Strength) #14 tabs ibuprofen 400 mg tablet 400 mg PO Q8H PRN fever or pain 04/06/24 #20 tabs doxycycline hyclate 100 mg capsule 100 mg PO BID cough 10 days #20 06/20/24 caps Allergies Allergy/AdvReac Type Severity Reaction Status Date / Time No Known Allergies Allergy Verified 06/19/24 20:53 Review of Systems Review of Systems: Positive bilateral flank pain positive pain on urination Yes all other systems are reviewed and are negative [facility] Past Medical History Attestation statement: The following information was validated with the patient. Social History Social History Alcohol intake: current Alcohol intake frequency: a few times a week Alcohol type: beer Advance Directives: No Advance Directives Information Provided: No Physical Exam Vital Signs: Vital Signs: Last Vital Signs Temp 97.9 F 06/20/24 01:00 Pulse 55 06/20/24 01:00 Resp 17 06/20/24 01:00 BP 112/70 06/20/24 01:00 Pulse Ox 96 06/20/24 01:00 O2 Del Method Room Air 06/20/24 01:00 BMI result Body Mass Index 30.4 Appearance: Alert. Oriented X3. No acute distress. Eyes: Pupils equal, round and reactive to light. ENT: Pharynx normal. Neck: Normal inspection. Neck supple. No lymph nodes noted. No crepitus CVS: Normal heart rate and rhythm. Pulses normal. Normal S1 and S2 Respiratory: No respiratory distress. Breath sounds normal. No Wheezing. No rales Abdomen: Soft and nontender. No rigidity. No distention. good BS x4 Skin: Skin warm and dry. Normal skin color. Normal skin turgor. Extremities: No lower extremity edema. Neurovascular intact to all extremities. No Lacerations. No Rash Neuro: Oriented X 3. No motor deficit. No sensory deficit. Moving all extermities. No slurred speech Medications Administered Discontinued Medications Generic Name Dose Route Start Last Admin Trade Name Freq PRN Reason Stop Dose Admin Ceftriaxone Sodium 500 mg 06/20/24 00:50 06/20/24 01:29 Ceftriaxone Sodium 500 Mg Vial IM 06/20/24 00:51 500 mg ONCE ONE Administration Doxycycline Monohydrate 100 mg 06/20/24 00:51 06/20/24 01:29 Doxycycline Monohydrate 100 Mg Capsule PO 06/20/24 00:52 100 mg ONCE ONE Administration Medical Decision Making Medical Decision Making [facility] Narrative: Patient's urine showed no gross signs of infection no evidence for urinary tract infection. CT scan of the abdomen pelvis was done. There is no evidence for kidney stone. No obstruction no abscess no perforation. Patient is sexually active complaining of pain with urination with questionable discharge noted by him. Will send off GC chlamydia. Will treat patient presumptively for GC chlamydia. Question pain to his testicle. Will get an ultrasound to rule out the possibility of torsion. Currently in stable condition. Patient's ultrasound showed no evidence for torsion. GC chlamydia was sent off. We will start patient on doxycycline and Rocephin. Close follow-up advised. Ask patient to refrain from sexual contact until partners are tested or treated. Currently in stable condition Differential Diagnosis Differential Diagnoses: The differential diagnosis associated with the presentation includes Testicular torsion, STD, kidney stone, diverticulitis Admission/Observation Consideration of admission/observation: Escalation of care including admission/observation considered Lab Data [facility] Lab Attestation statement: I reviewed the patient's lab results. 06/19/24 21:08 06/19/24 21:08 Labs: Lab Results 06/19/24 Range/Units 21:08 WBC 9.8 (4.8-10.8) X10*3/uL RBC 5.01 (4.60-5.80) X10*6/uL Hgb 15.1 (14.0-18.0) g/dl Hct 44.8 (42.0-52.0) % MCV 89.4 (80.0-98.0) fL MCH 30.1 (27.0-33.0) pg MCHC 33.7 (31.0-36.0) g/dl RDW 12.4 (11.0-16.0) % Plt Count 276 (160-400) X10*3/uL MPV 9.5 (9.4-12.4) fL Immature Gran % (Auto) 0.4 (0.0-0.4) % Neut % (Auto) 70.3 (45-73) % Lymph % (Auto) 19.3 L (20-40) % Baldwin % (Auto) 7.3 (2-11) % Eos % (Auto) 1.9 (0-4) % Baso % (Auto) 0.8 (0-2) % Lymph # (Auto) 1.9 (1.2-4.9) X10*3/uL Baldwin # (Auto) 0.7 (0.1-1.2) X10*3/uL Eos # (Auto) 0.2 (0.0-0.4) X10*3/uL Baso # (Auto) 0.1 (0.0-0.2) X10*3/uL Abs Immat Gran (auto) 0.04 H (0.00-0.03) X10*3/uL Absolute Neuts (auto) 6.9 (2.0-8.3) x10*3/uL Absolute Nucleated RBC 0.000 (0.0-0.012) X10*3/uL Nucleated RBC % (auto) 0.0 (0.0-0.2) /100WBC Sodium 140 (135-145) mmol/L Potassium 4.2 (3.3-5.1) mmol/L Chloride 107 (96-108) mmol/L Carbon Dioxide 26 (22-29) mmol/L Anion Gap 11 L (12-20) BUN 21 H (9-16) mg/dL Creatinine 1.31 (0.5-1.4) mg/dL Estim Creat Clear Calc 67.6 Estimated GFR 57 Random Glucose 113 (60-115) mg/dL Calcium 9.2 D (8.4-10.2) mg/dL Magnesium 2.2 (1.6-2.6) mg/dL Total Bilirubin 0.4 (0.0-1.0) mg/dL Direct Bilirubin 0.1 (0.0-0.5) mg/dL AST 37 (5-37) U/L ALT 32 (0-40) U/L Alkaline Phosphatase 79 (39-117) U/L Total Protein 8.0 (6.5-8.0) g/dL Albumin 4.3 (3.5-5.0) g/dL Urine Color Yellow Urine Appearance Clear Urine pH 5.5 (5.0-9.0) Ur Specific Spear[place] >= 1.030 H (1.005-1.025) Urine Protein Negative (Neg-Trace) mg/dL Urine Glucose (UA) Negative (Negative) mg/dL Urine Ketones Negative (Negative) mg/dL Urine Blood Negative (Negative) Urine Nitrite Negative (Negative) Ur Leukocyte Esterase Negative (Negative) Discharge Plan Discharge Clinical Impression: Urethritis Patient Disposition: Home, Self-Care Instructions: Sexually Transmitted Diseases (ED), Safe Sex Practices (ED) Prescriptions: New doxycycline hyclate 100 mg capsule 100 mg PO BID 10 Days Qty: 20 0RF No Action acetaminophen 500 mg tablet 500 mg PO Q6H PRN (Reason: fever or pain) Qty: 20 0RF cyclobenzaprine 10 mg tablet 10 mg PO TID PRN (Reason: muscle spasm) Qty: 7 0RF acetaminophen [Tylenol Extra Strength] 500 mg tablet 500 mg PO Q6H PRN (Reason: fever or pain) Qty: 14 0RF ibuprofen 400 mg tablet 400 mg PO Q8H PRN (Reason: fever or pain) Qty: 20 0RF Referrals: Physician,Unknown J [Primary Care Provider] - 06/22/24 (Please get partner tested or treated. Prior to engaging in sexual activity) Print Language: Kinyarwanda
--- NOTE | 2024-06-20 00:10 | PC.NURSE ---
pt a&ox4, respirations even and unlabored. pt reporting onset of urinary pain and frequency x3 days. pt reports he is sexually active at this time. pt able to provide urine sample, sent to lab. pt to US at this time.
[2024-06-20 01:00] VITALS: BP 112/70; PULSE 55; RESP 17; TEMP 36.6; O2SAT 96
[2024-06-20] MEDS: Doxycycline Monohydrate 100 MG CAPSULE PO (01:29)
[2024-06-20] MEDS: cefTRIAXone sodium 500 MG VIAL IM (01:29)
[2024-06-20 02:07] LABS: CT PCR NOT DETECTED (Not Detect.); NG PCR NOT DETECTED (Not Detect.)
== END 2024-06-20 01:47 | disposition home or self-care (01) ==
PROVIDERS: Physician Assistant; Emergency Provider Emergency Medicine Emergency Medical Services
DX: N34.2 Other urethritis (principal); N50.819 Testicular pain, unspecified; R35.0 Frequency of micturition
CPT/HCPCS: 36415; 74176; 76870; 80048; 80076; 81003; 83735; 85025; 87491; 87591; 93975; 96372; 99284; J0696

== ENCOUNTER → 2024-06-19 20:52 | Outpatient (BNV) | payer OTHER, SELFPAY | PROVIDERS: Visit Provider Radiology Diagnostic Radiology | DX: R10.9 Unspecified abdominal pain (principal); R39.11 Hesitancy of micturition | CPT/HCPCS: 74176 ==

== ENCOUNTER → 2024-06-20 | Outpatient (BNV) | payer OTHER, SELFPAY | PROVIDERS: Emergency Provider Emergency Medicine Emergency Medical Services; Visit Provider Radiology Diagnostic Radiology | DX: N50.819 Testicular pain, unspecified (principal) | CPT/HCPCS: 93975 ==